=== PATIENT | male | born 1950 | race Caucasian/White ===

== ENCOUNTER 2019-10-28 13:42 | IRF | payer MEDICARE, SELFPAY ==
[2019-10-28 14:00] VITALS: BP 118/55; PULSE 66; RESP 18; TEMP 36.5; O2SAT 100; BMI 27.1
--- NOTE | 2019-10-28 16:38 | PC.NURSE ---
This patient, Edgar Bonds, was admitted to [facility] Room 219-02. Patient/family oriented to hospital policies and general routines including ID bracelet, bed and alarms, visiting hours, pain management, procedures, bathroom and other care routines, personal items, smoking policy, room service/diet, and visiting hours. Valuables list has been completed. Information on how to activate the Rapid Response Team has been discussed. Patient/Family are encouraged to report perceived risks to care and to ask questions if they do not understand what they are told or what they should do.
[2019-10-28 17:05] VITALS: BMI 27.1
[2019-10-28 17:30] LABS: Glucose Point of Care 299 (65-105)
[2019-10-28 17:35] VITALS: PULSE 68
[2019-10-28] MEDS: AMIODARONE HCL 200 MG TABLET PO (17:35)
[2019-10-28] MEDS: INSULIN ASPART (*BKC) 100 UNITS/ML 8 UNITS SUB-Q (17:36)
[2019-10-28] MEDS: APIXABAN 5 MG TABLET PO (17:36)
[2019-10-28 20:11] LABS: Glucose Point of Care 418 (65-105)
[2019-10-28 20:59] VITALS: PULSE 68
[2019-10-28] MEDS: carvediloL 25 MG TABLET PO (20:59)
[2019-10-28] MEDS: INSULIN GLARGINE (*BKC) 100 UNITS/ML 30 UNITS SUB-Q (20:59)
[2019-10-28 22:00] VITALS: BP 164/58; PULSE 71; RESP 18; TEMP 36.8; O2SAT 100
[2019-10-29] VITALS (8 sets, daily range): BP systolic 123–141; BP diastolic 55–65; PULSE 63–90; RESP 16–19; TEMP 36.2–36.7; O2SAT 99–100
[2019-10-29 04:56] LABS: Basophils Absolute Auto 0.1 K/mm3 (0.0-0.1); Basophils Percent Auto 0.9 % (0.2-1.2); Eosinophils Absolute Auto 0.3 K/mm3 (0-0.3); Eosinophils Percent Auto 3.1 % (0-4.4); Hematocrit 26.9 % (42.0-52.0); Hemoglobin 8.8 g/dL (14.0-18.0); Immature Granulocyte Absolute 0.23 K/mm3 (0.00-0.031); Immature Granulocyte Percent A 2.3 % (0-0.5); Lymphocytes Absolute Auto 2.31 K/mm3 (0.9-3.2); Lymphocytes Percent Auto 23.3 % (18.3-44.2); Mean Corpuscular HGB Conc 32.7 g/dl (32-36); Mean Corpuscular Hemoglobin 30.8 pg (26-34); Mean Corpuscular Volume 94.1 fl (80-100); Mean Platelet Volume 11.4 fl (7.4-10.4); Monocytes Absolute Auto 0.9 K/mm3 (0.1-0.6); Monocytes Percent Auto 9.3 % (2.6-8.5); Neutrophils Absolute Auto 6.1 K/mm3 (1.3-6.7); Neutrophils Percent Auto 61.1 % (45.5-73.1); Platelet Count Result 456 k/mm3 (150-375); Red Blood Count 2.86 M/mm3 (4.6-6.20); Red Cell Distribution Width 14.6 % (11.5-14.5); White Blood Count 9.9 K/mm3 (4.5-10.0)
[2019-10-29 05:04] LABS: Hemoglobin A1C 6.8 % (<5.7)
[2019-10-29 05:11] LABS: Blood Urea Nitrogen 51 mg/dL (9-20); Calcium 9.6 mg/dL (8.4-10.2); Carbon Dioxide 29 mmol/L (22-30); Chloride 99 mmol/L (98-107); Cholesterol 198 mg/dL (0-200); Estimated CRCL calculation 28 ml/min; Estimated Glomerular Filt Rate 27; Glucose 244 mg/dL (75-110); HDL Direct 24 mg/dL; Potassium 4.9 mmol/L (3.4-5.0); Sodium 135 mmol/L (137-145); Triglycerides 264 mg/dL (<150)
[2019-10-29 05:23] LABS: LDL Cholesterol Direct 114 mg/dL
[2019-10-29 06:59] LABS: Glucose Point of Care 234 (65-105)
[2019-10-29] MEDS: AMIODARONE HCL 200 MG TABLET PO ×2 (08:47→17:48)
[2019-10-29] MEDS: DIGOXIN 250 MCG TABLET PO (08:48)
[2019-10-29] MEDS: APIXABAN 5 MG TABLET PO ×2 (08:48→17:48)
[2019-10-29] MEDS: carvediloL 25 MG TABLET PO ×2 (08:48→20:23)
[2019-10-29] MEDS: POTASSIUM CHLORIDE 10 MEQ TABLET.ER PO (08:49)
[2019-10-29] MEDS: MAGNESIUM OXIDE 400 MG TABLET PO (08:49)
[2019-10-29] MEDS: FUROSEMIDE 40 MG TABLET PO (08:49)
[2019-10-29] MEDS: INSULIN ASPART (*BKC) 100 UNITS/ML 8 UNITS SUB-Q ×3 (08:53→17:48)
--- NOTE | 2019-10-29 10:00 | WPDREHABHP ---
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 The patient is a 69-year-old right-handed white male with past medical history of hypertension and diabetes mellitus with peripheral neuropathy who presented to [facility] on October 11, 2019 with acute mental status changes. Patient's reported the patient was shaky not following commands and had a left-sided gaze deviation. She called EMS. The checked the patient's blood glucose on reported it at 162 but EMS found it to be 33. He was given 1 amp you will of D50 with rapid resolution of symptoms. He did have an episode of emesis in the emergency department. CT of the head showed an old left thalamic stroke and small abnormality within the right thalamus which could represent an age indeterminate stroke. Initial chest x-ray was negative. CT of the chest abdomen pelvis demonstrated clear lung bases but showed thickened interstitial tissues around bilateral kidneys for which the patient was given 2 gram of IV Rocephin. He was also given 1 gram of calcium gluconate 10 units of regular insulin and 100 milligram IV Lasix for hyperkalemia. The patient developed a of worsening respiratory status and desaturated down to the 70s. He became agitated and would not keep oxygen in place. He had a significantly elevated blood pressure with concern for flash pulmonary edema. Repeat chest x-ray demonstrated short interval development of extensive bilateral interstitial reticular opacity suggestive of edema or infiltrates. Fluids were stopped and the patient was intubated sedated and started on mechanical ventilation he was admitted to the ICU. Nephrology was consulted and saw patient on October 12, 2019 for acute renal failure with hyperkalemia worsened by succinylcholine. A groin catheter was placed and was used for temporary dialysis to correct metabolic acidosis and hyperkalemia. All cultures obtained per negative. COVID-19 testing was negative. He was treated with vancomycin and cefepime and azithromycin and was diuresed for congestion a he was extubated on October 16, 2019 and was placed on CPAP, he was transitioned to BiPAP and eventually weaned to a high-flow nasal cannula on October 20, 2019 his hemodialysis catheter was removed on October 20, 2019. Nephrology feels his new treating level at a baseline is around 2 currently 1.94 he was weaned to 8 Oxymizer on October 21, 2019 but on October 22, 2019 became hypoxic at 88% so the oximeter was titrated up to 10 liters. He weaned down to 2 liters per nasal cannula on October 23, 2019 and is concerned currently on moved air. Cardiology was consulted and saw the patient on October 22, 2019 for new atrial fibrillation with rapid ventricular response. His echo showed no valvular disease and the was no documented history of atrial fibrillation. He remained stable and required boluses of amiodarone x5 as well as p.o. dosing in the prior days. Cardiology increase his p.o. dosing to 400 milligram t.i.d. for 48 hours. In addition and they added renal does digoxin and continued Coreg patient had an elevated troponin which cardiology attributed to demand ischemia from respiratory failure given his echo showed stable LV SF and no wall motion abnormality. He was transitioned from the heparin drops to p.o. anticoagulation. The patient failed the swallow study in October 20, 2019. On October 21, 2019 his diet was advanced to dysphagia 3 and October 23, 2019 he was advanced to regular consistency diet with thin liquids. Physical examination continues to reveal deconditioning impaired balance decreased motor control and decreased safety aware
[2019-10-29 12:38] LABS: Glucose Point of Care 314 (65-105)
[2019-10-29 17:27] LABS: Glucose Point of Care 353 (65-105)
[2019-10-29 20:09] LABS: Glucose Point of Care 418 (65-105)
[2019-10-29] MEDS: INSULIN GLARGINE (*BKC) 100 UNITS/ML 30 UNITS SUB-Q (20:24)
[2019-10-30] VITALS (9 sets, daily range): BP systolic 123–152; BP diastolic 59–66; PULSE 68–78; RESP 16–18; TEMP 36.8–36.9; O2SAT 97–100
[2019-10-30 06:55] LABS: Glucose Point of Care 237 (65-105)
--- NOTE | 2019-10-30 09:33 | RPD ---
INDIVIDUALIZED PLAN OF CARE FOR Edgar Bonds Brief Synthesis of Pre-Admission Screen, Post-Admission Evaluation and Therapy Evaluations: The patient presents to rehab with critical illness myopathy. Comorbidities include acute hypoxic respiratory failure requiring ventilation, acute renal failure requiring temporary hemodialysis, right thalamic indeterminate age stroke, hyperkalemia, hypoglycemia, hyperglycemia, diabetes mellitus type 2, hypertension, hypertensive emergency, elevated troponin, hyperlactatemia, metabolic acidosis, dysphagia, atrial fibrillation with RVR, sepsis, acute diastolic congestive heart failure. The patient requires physician services for neurology services, medical oversight, and coordination of care. Emotional needs will be monitored as depression is a common sequelae of stroke. The patient needs physician monitoring and treatment of respiratory insufficiency, hypertension, diabetes mellitus, new atrial fibrillation with RVR, renal failure, monitoring for adverse reactions to new medications, and monitoring of infection. The patient requires nursing services for frequent neuro checks, anticoagulation therapy, medication management and education, pressure relief and skin care management, monitoring of labs, bowel and bladder training, diabetes management and education, and fall/safety precautions. Deficits include:ADLs, Balance, Cognition, Endurance, Family Training/Education, Mobility, Pain Management, ROM, Safety, Strength, Swallowing, Transfers Reproductive Endocrinologist/Case Management for: Discharge Planning and Patient/Family Counseling Physical Therapy: 5 days per week for 90 minutes. Treatments may include: Therapeutic Exercise, Gait Training, Neuromuscular Re-education, Transfer Training, Community Reintegration, Bed Mobility, Patient/Family Education, Wheelchair Mobility Group Therapy/Concurrent Therapy Rationales: -Improve attention span during functional activities in a distracted environment. -Enhance problem solving and/or adequate judgment skills during functional activities in a distracted environment. -Promote increased safety awareness in a distracted environment to reduce fall risk with functional tasks, transfers, and ambulation to allow a more safe, self-sufficient return to the home environment. -Improve dynamic balance skills to promote safety and independence with functional activities in a distracted environment for maximum gain. Occupational Therapy: 5 days per week for 90 minutes. Treatments may include: Therapeutic Exercise, Therapeutic Activity, Cognitive Training, Self-Care Transfer Training, Community Reintegration, Home Management, Patient/Family Education, Wheelchair Mobility Training, Energy Conservation Training Group Therapy/Concurrent Therapy Rationales: -Allow therapist to observe and teach generalization and carry-over of skills learned in individual therapy. -Enhance problem solving and sequencing skills during therapeutic activities in a distracted environment. -Promote increased safety awareness in a realistic setting to reduce fall risk with functional tasks due to visual and verbal distractions. -Increase functional level with ADLs, ADL transfers and use of adaptive equipment through therapeutic activities with others while promoting safety to allow a more safe, self-sufficient return home. Medical Prognosis: Good Anticipated Length of Stay: 12 days Rehab Goals: Eating Goal: 06-Independent Oral Hygiene Goal: 06-Independent Toileting Hygiene Goal: 06-Independent Shower/Bathe Self Goal: 06-Independent Upper Body Dressing Goal: 06-Independent Lower Body Dressing Goal: 06-Independent Putting On/Taking Off Footwear Goal: 06-Independent Rolling Left and Right Goal: 06-Independent Sit to Lying Goal: 06-Independent Lying to Sitting on Side of Bed Goal: 06-Independent Sit to Stand Goal: 06-Independent Chair/Ssj-eh-[id number] Transfer Goal: 06-Independent Toilet Transfer Goal: 06-Independent Car Transfer Goal
[2019-10-30] MEDS: AMIODARONE HCL 200 MG TABLET PO ×2 (10:06→17:52)
[2019-10-30] MEDS: DIGOXIN 250 MCG TABLET PO (10:07)
[2019-10-30] MEDS: APIXABAN 5 MG TABLET PO ×2 (10:07→17:52)
[2019-10-30] MEDS: carvediloL 25 MG TABLET PO ×2 (10:07→20:31)
[2019-10-30] MEDS: FUROSEMIDE 40 MG TABLET PO (10:08)
[2019-10-30] MEDS: INSULIN ASPART (*BKC) 100 UNITS/ML 8 UNITS SUB-Q ×3 (10:08→17:51)
[2019-10-30] MEDS: MAGNESIUM OXIDE 400 MG TABLET PO (10:08)
[2019-10-30] MEDS: POTASSIUM CHLORIDE 10 MEQ TABLET.ER PO (10:08)
[2019-10-30 12:25] LABS: Glucose Point of Care 331 (65-105)
[2019-10-30 17:36] LABS: Glucose Point of Care 304 (65-105)
[2019-10-30] MEDS: INSULIN GLARGINE (*BKC) 100 UNITS/ML 30 UNITS SUB-Q (20:32)
[2019-10-30 21:16] LABS: Glucose Point of Care 411 (65-105)
[2019-10-31] VITALS (9 sets, daily range): BP systolic 123–150; BP diastolic 52–64; PULSE 61–72; RESP 16–18; TEMP 36–37.1; O2SAT 98–100; BMI 27.1
[2019-10-31 06:55] LABS: Glucose Point of Care 255 (65-105)
[2019-10-31] MEDS: APIXABAN 5 MG TABLET PO ×2 (09:09→17:44)
[2019-10-31] MEDS: AMIODARONE HCL 200 MG TABLET PO ×2 (09:09→17:44)
[2019-10-31] MEDS: DIGOXIN 250 MCG TABLET PO (09:10)
[2019-10-31] MEDS: FUROSEMIDE 40 MG TABLET PO (09:10)
[2019-10-31] MEDS: MAGNESIUM OXIDE 400 MG TABLET PO (09:10)
[2019-10-31] MEDS: carvediloL 25 MG TABLET PO ×2 (09:10→21:45)
[2019-10-31] MEDS: POTASSIUM CHLORIDE 10 MEQ TABLET.ER PO (09:10)
[2019-10-31] MEDS: polyethylene glycoL 3350 17 GM POWD.PACK PO (09:10)
[2019-10-31] MEDS: INSULIN ASPART (*BKC) 100 UNITS/ML 10 UNITS SUB-Q ×3 (09:11→17:46)
--- NOTE | 2019-10-31 12:11 | PCNFU ---
Nutrition Follow-Up Complete: Inadequate oral intake r/t reduced appetite & stress as evidence by mild wt loss over last few weeks (2-12lbs) Goal: PO intake of meals at 75% or greater to maintain wt We will continue current goal. Pt current nutrition is [facility]. Nutrition recommendation: Agree Last recorded weight is 88.4 kg. Bowel Motility:+BM reported 10/27 Labs Reviewed:No labs to report. Meds Noted:Novolog, Miralax, Lantus, Lasix Additional Notes: Spoke with patient over telephone due to COVID 19 precautions. Patient states appetite has been fair. Since going into the hospital September weight has been down about 20 ibs. He states insulin is new, Bat Boy/Girl has been consulted. orders for Glucerna Shake once per day providing an additional 220 kcals and 9 gms protein. PO intake, wt, glucose labs every five days
[2019-10-31 12:14] LABS: Glucose Point of Care 306 (65-105)
--- NOTE | 2019-10-31 12:46 | WPDNEURORHBP ---
Subjective Date/time seen: 10/31/19 12:46 Interval history: this 69-year-old diabetic gentleman is here because of critical illness myopathy and critical illness neuropathy he is doing fairly well and we are waiting for the diabetic nurse to educate him and try to adjust his medications overall he continues to improve denies any headache nausea vomiting chest pain shortness of breath fever chills or sore throat Review of Systems Review of Systems: All systems reviewed & are unremarkable except as noted in HPI and below Functional Status Ambulation Ability Ability to Ambulate 10 Feet: Moderate Assistance X 1 Ability to Ambulate 50 Feet With 2 Turns: Moderate Assistance X 1 Ambulation Assistive Devices: Walker, Wheeled Exam Const: General: comfortable and no acute distress HENMT: General nose exam: Normal nares present Mouth: Yes moist mucous membranes Eyes: General: appearance normal, both eyes and all related structures Neck: Neck: supple and no JVD Resp: Effort & Inspection: normal respiratory effort Auscultation: clear to auscultation bilaterally Cardio: Rate: regular rate Rhythm: regular rhythm GI: GI Palp: Yes Soft to palpation Auscultation: normal bowel sounds Skin: General skin exam: normal color and no rashes or lesions noted Neuro: Other: patient is awake and alert well oriented time place and person has normal speech and language function normal cranial examination does have evidence of myopathy with the proximal more than distal weakness affecting the lower extremities more so than the upper extremities along with neuropathy and also depressed reflexes in the sensory deficit Extrem: General: normal to inspection Psych: Mental Status: mental status grossly normal Objective Data Vital Signs Vital Signs: Vital Signs - 24 hr 10/30/19 14:00 10/30/19 14:05 10/30/19 17:52 Temperature 36.8 C Pulse Rate 68 68 72 Respiratory Rate 16 Blood Pressure 131/66 134/63 Pulse Oximetry 100 10/30/19 20:31 10/30/19 22:00 10/31/19 06:00 Temperature 36.8 C 37.1 C Pulse Rate 72 78 67 Respiratory Rate 18 16 Blood Pressure 148/59 H 139/64 Pulse Oximetry 97 99 10/31/19 08:00 10/31/19 09:09 10/31/19 09:10 Temperature Pulse Rate 67 67 67 Respiratory Rate 16 Blood Pressure Pulse Oximetry 99 10/31/19 09:33 Temperature Pulse Rate 67 Respiratory Rate Blood Pressure 142/52 H Pulse Oximetry 100 Intake/Output Intake/Output: Intake & Output 10/28/19 10/29/19 10/30/19 10/31/19 23:59 23:59 23:59 23:59 Intake Total 240 840 780 240 Balance 240 840 780 240 Meds/Results Medications: Active Medications Generic Name Dose Route Start Last Admin Trade Name Montyq PRN Reason Stop Dose Admin Amiodarone HCl 200 mg 10/28/19 17:00 10/31/19 09:09 Pacerone PO 200 mg BID AYESHA Administration Apixaban 5 mg 10/28/19 17:00 10/31/19 09:09 Eliquis PO 5 mg BID AYESHA Administration Carvedilol 25 mg 10/28/19 21:00 10/31/19 09:10 Coreg PO 25 mg Q12HR AYESHA Administration Digoxin 250 mcg 10/29/19 09:00 10/31/19 09:10 Lanoxin Tab PO 250 mcg DAILY AYESHA Administration Furosemide 40 mg 10/29/19 09:00 10/31/19 09:10 Lasix Tablet PO 40 mg DAILY AYESHA Administration Insulin Aspart 10 units 10/30/19 21:34 10/31/19 09:11 Novolog SUB-Q 10 units ACINSULIN AYESHA Administration Insulin Glargine 30 units 10/28/19 21:00 10/30/19 20:32 Lantus SUB-Q 30 units HS AYESHA Administration Magnesium Oxide 400 mg 10/29/19 09:00 10/31/19 09:10 Mag-Ox PO 400 mg DAILY AYESHA Administration Polyethylene Glycol 17 gm 10/31/19 09:00 10/31/19 09:10 Miralax PO 17 gm QAM AYESHA Administration Potassium Chloride 10 meq 10/29/19 09:00 10/31/19 09:10 Kcl Tablet PO 10 meq DAILY AYESHA Administration Ropinirole HCl 0.25 mg 10/28/19 21:00 10/30/19 20:31 Requip PO 0.25 mg HS AYESHA Administration Labs Labs: Laborat
[2019-10-31 17:16] LABS: Glucose Point of Care 268 (65-105)
[2019-10-31] MEDS: INSULIN ASPART (*BKC) 100 UNITS/ML SUB-Q (17:47)
[2019-10-31] MEDS: INSULIN GLARGINE (*BKC) 100 UNITS/ML 30 UNITS SUB-Q (21:46)
[2019-10-31 22:14] LABS: Glucose Point of Care 301 (65-105)
[2019-11-01] VITALS (10 sets, daily range): BP systolic 130–140; BP diastolic 59–68; PULSE 64–76; RESP 16–17; TEMP 36.9–37.3; O2SAT 99–100
[2019-11-01 04:52] LABS: Basophils Absolute Auto 0.1 K/mm3 (0.0-0.1); Basophils Percent Auto 1.1 % (0.2-1.2); Eosinophils Absolute Auto 0.3 K/mm3 (0-0.3); Eosinophils Percent Auto 3.7 % (0-4.4); Hemoglobin 8.8 g/dL (14.0-18.0); Immature Granulocyte Absolute 0.09 K/mm3 (0.00-0.031); Immature Granulocyte Percent A 1.1 % (0-0.5); Lymphocytes Absolute Auto 2.18 K/mm3 (0.9-3.2); Lymphocytes Percent Auto 27.8 % (18.3-44.2); Mean Corpuscular HGB Conc 32.6 g/dl (32-36); Mean Corpuscular Hemoglobin 30.3 pg (26-34); Mean Corpuscular Volume 93.1 fl (80-100); Mean Platelet Volume 11.3 fl (7.4-10.4); Monocytes Absolute Auto 0.9 K/mm3 (0.1-0.6); Monocytes Percent Auto 10.9 % (2.6-8.5); Neutrophils Absolute Auto 4.3 K/mm3 (1.3-6.7); Neutrophils Percent Auto 55.4 % (45.5-73.1); Platelet Count Result 412 k/mm3 (150-375); Red Cell Distribution Width 14.1 % (11.5-14.5); White Blood Count 7.8 K/mm3 (4.5-10.0)
[2019-11-01 05:25] LABS: Blood Urea Nitrogen 36 mg/dL (9-20); Calcium 9.3 mg/dL (8.4-10.2); Carbon Dioxide 26 mmol/L (22-30); Chloride 98 mmol/L (98-107); Estimated CRCL calculation 34 ml/min; Estimated Glomerular Filt Rate 33; Glucose 236 mg/dL (75-110); Potassium 4.3 mmol/L (3.4-5.0); Sodium 133 mmol/L (137-145)
[2019-11-01 06:58] LABS: Glucose Point of Care 236 (65-105)
[2019-11-01] MEDS: INSULIN ASPART (*BKC) 100 UNITS/ML SUB-Q ×3 (08:51→17:29)
[2019-11-01] MEDS: INSULIN ASPART (*BKC) 100 UNITS/ML 10 UNITS SUB-Q ×3 (08:52→17:29)
[2019-11-01] MEDS: DIGOXIN 250 MCG TABLET PO (08:56)
[2019-11-01] MEDS: carvediloL 25 MG TABLET PO ×2 (08:56→21:06)
[2019-11-01] MEDS: FUROSEMIDE 40 MG TABLET PO (08:56)
[2019-11-01] MEDS: MAGNESIUM OXIDE 400 MG TABLET PO (08:56)
[2019-11-01] MEDS: APIXABAN 5 MG TABLET PO ×2 (08:56→17:31)
[2019-11-01] MEDS: AMIODARONE HCL 200 MG TABLET PO ×2 (08:57→17:30)
[2019-11-01] MEDS: POTASSIUM CHLORIDE 10 MEQ TABLET.ER PO (08:57)
[2019-11-01] MEDS: polyethylene glycoL 3350 17 GM POWD.PACK PO (08:57)
[2019-11-01 12:04] LABS: Glucose Point of Care 281 (65-105)
--- NOTE | 2019-11-01 16:12 | WPDNEURORHBP ---
Subjective Date/time seen: 11/01/19 16:12 Interval history: this 69-year-old diabetic male with a complicated medical history as has been previously documented on many occasions along with my HNP is here because critical illness myopathy/ critical illness neuropathy. His sugars have been relatively better control at this point the diabetic specialist has seen him and has recommended some changes which I was able to do so his strength is improving he denies any headache nausea vomiting chest pain shortness of breath fever chills or sore throat Review of Systems Review of Systems: All systems reviewed & are unremarkable except as noted in HPI and below Functional Status Ambulation Ability Ability to Ambulate 10 Feet: Minimum Assistance X 1 Ability to Ambulate 50 Feet With 2 Turns: Minimum Assistance X 1 Ambulation Assistive Devices: Walker, Wheeled Exam Const: General: comfortable and no acute distress HENMT: General nose exam: Normal nares present Mouth: Yes moist mucous membranes Eyes: General: appearance normal, both eyes and all related structures Neck: Neck: supple and no JVD Resp: Effort & Inspection: normal respiratory effort Auscultation: clear to auscultation bilaterally Cardio: Rate: regular rate Rhythm: regular rhythm GI: GI Palp: Yes Soft to palpation Auscultation: normal bowel sounds Skin: General skin exam: normal color and no rashes or lesions noted Neuro: Other: patient remains awake alert with normal mental status normal cranial examination however significantly decreased strength in the lower extremities more so than the upper extremities with proximal more than the distal weakness however this is improving and is doing much better Extrem: General: normal to inspection Psych: Mental Status: mental status grossly normal Objective Data Vital Signs Vital Signs: Vital Signs - 24 hr 10/31/19 17:44 10/31/19 20:44 10/31/19 21:45 Temperature 37.1 C Pulse Rate 69 61 72 Respiratory Rate 18 Blood Pressure 150/62 H Pulse Oximetry 98 11/01/19 06:00 11/01/19 08:56 11/01/19 08:57 Temperature 37.0 C Pulse Rate 64 64 64 Respiratory Rate 16 Blood Pressure 140/59 L Pulse Oximetry 100 11/01/19 14:00 Temperature 37.3 C Pulse Rate 66 Respiratory Rate 17 Blood Pressure 134/59 L Pulse Oximetry 100 Intake/Output Intake/Output: Intake & Output 10/29/19 10/30/19 10/31/19 11/01/19 23:59 23:59 23:59 23:59 Intake Total 840 780 720 660 Balance 840 780 720 660 Meds/Results Medications: Active Medications Generic Name Dose Route Start Last Admin Trade Name Freq PRN Reason Stop Dose Admin Amiodarone HCl 200 mg 10/28/19 17:00 11/01/19 08:57 Pacerone PO 200 mg BID AYESHA Administration Apixaban 5 mg 10/28/19 17:00 11/01/19 08:56 Eliquis PO 5 mg BID AYESHA Administration Carvedilol 25 mg 10/28/19 21:00 11/01/19 08:56 Coreg PO 25 mg Q12HR AYESHA Administration Dextrose 12.5 gm 10/31/19 14:42 Dextrose 50% Syringe IV PUSH PRN PRN Hypoglycemia Protocol Digoxin 250 mcg 10/29/19 09:00 11/01/19 08:56 Lanoxin Tab PO 250 mcg DAILY AYESHA Administration Furosemide 40 mg 10/29/19 09:00 11/01/19 08:56 Lasix Tablet PO 40 mg DAILY AYESHA Administration Glucagon 1 mg 10/31/19 14:42 Glucagon For Inj IM PRN PRN Hypoglycemia Protocol Glucose 15 gm 10/31/19 14:42 Glutose 15 PO PRN PRN Hypoglycemia Protocol Dextrose 1,000 mls @ 100 mls/hr 10/31/19 14:42 Dextrose 5% 1,000 Ml IVPB PRN PRN Hypoglycemia Protocol Insulin Aspart 10 units 10/30/19 21:34 11/01/19 12:27 Novolog SUB-Q 10 units ACINSULIN AYESHA Administration Insulin Aspart 3 - 6 units 10/31/19 17:00 11/01/19 12:27 Novolog SUB-Q 4 units TIDWM AYESHA Administration Protocol Insulin Glargine 30 units 10/28/19 21:00 10/31/19 21:46 Lantus SUB-Q 30 units HS [facility] Admi
[2019-11-01 17:10] LABS: Glucose Point of Care 224 (65-105)
[2019-11-01] MEDS: INSULIN GLARGINE (*BKC) 100 UNITS/ML 30 UNITS SUB-Q (21:06)
[2019-11-01 21:25] LABS: Glucose Point of Care 294 (65-105)
[2019-11-02] VITALS (9 sets, daily range): BP systolic 105–141; BP diastolic 49–68; PULSE 66–78; RESP 16–20; TEMP 36.8–37.2; O2SAT 100
[2019-11-02 07:02] LABS: Glucose Point of Care 225 (65-105)
[2019-11-02] MEDS: INSULIN ASPART (*BKC) 100 UNITS/ML 10 UNITS SUB-Q ×3 (07:39→18:33)
[2019-11-02] MEDS: INSULIN ASPART (*BKC) 100 UNITS/ML SUB-Q ×3 (07:39→18:33)
[2019-11-02] MEDS: MAGNESIUM OXIDE 400 MG TABLET PO (08:50)
[2019-11-02] MEDS: DIGOXIN 250 MCG TABLET PO (08:50)
[2019-11-02] MEDS: APIXABAN 5 MG TABLET PO ×2 (08:50→18:34)
[2019-11-02] MEDS: POTASSIUM CHLORIDE 10 MEQ TABLET.ER PO (08:50)
[2019-11-02] MEDS: FUROSEMIDE 40 MG TABLET PO (08:50)
[2019-11-02] MEDS: polyethylene glycoL 3350 17 GM POWD.PACK PO (08:50)
[2019-11-02] MEDS: carvediloL 25 MG TABLET PO ×2 (08:51→21:02)
[2019-11-02] MEDS: AMIODARONE HCL 200 MG TABLET PO ×2 (08:51→18:35)
[2019-11-02 12:19] LABS: Glucose Point of Care 224 (65-105)
--- NOTE | 2019-11-02 16:34 | WPDNEURORHBP ---
Subjective Date/time seen: 11/02/19 16:34 Interval history: this 69-year-old gentleman is here because of the critical illness myopathy /critical illness peripheral neuropathy with prolonged course of the hospitalization prior to coming to us his diabetic control at best is fair and have increased his Januvia today his renal function is better which is good news he denies any headache nausea vomiting chest pain shortness of breath fever chills sore throat Review of Systems Review of Systems: All systems reviewed & are unremarkable except as noted in HPI and below Functional Status Ambulation Ability Ability to Ambulate 10 Feet: Minimum Assistance X 1 Ability to Ambulate 50 Feet With 2 Turns: Minimum Assistance X 1 Ability to Ambulate 150 Feet: Minimum Assistance X 1 Ambulation Assistive Devices: Walker, Wheeled Exam Const: General: comfortable and no acute distress HENMT: General nose exam: Normal nares present Mouth: Yes moist mucous membranes Eyes: General: appearance normal, both eyes and all related structures Neck: Neck: supple and no JVD Resp: Effort & Inspection: normal respiratory effort Auscultation: clear to auscultation bilaterally Cardio: Rate: regular rate Rhythm: regular rhythm GI: GI Palp: Yes Soft to palpation Auscultation: normal bowel sounds Skin: General skin exam: normal color and no rashes or lesions noted Neuro: Other: patient's mental status examination is normal his strength is improving and is doing better in the rehab Extrem: General: normal to inspection Psych: Mental Status: mental status grossly normal Objective Data Vital Signs Vital Signs: Vital Signs - 24 hr 11/01/19 17:30 11/01/19 20:12 11/01/19 21:06 Temperature 36.9 C Pulse Rate 68 70 76 Respiratory Rate 16 Blood Pressure 131/61 Pulse Oximetry 99 11/02/19 06:15 11/02/19 08:50 11/02/19 08:51 Temperature 37.0 C Pulse Rate 67 66 66 Respiratory Rate 16 Blood Pressure 126/68 Pulse Oximetry 100 11/02/19 09:00 11/02/19 10:00 11/02/19 14:00 Temperature 37.2 C Pulse Rate 71 66 78 Respiratory Rate 16 20 Blood Pressure 141/59 H 105/49 L Pulse Oximetry 100 Intake/Output Intake/Output: Intake & Output 10/30/19 10/31/19 11/01/19 11/02/19 23:59 23:59 23:59 23:59 Intake Total 780 720 900 480 Balance 780 720 900 480 Meds/Results Medications: Active Medications Generic Name Dose Route Start Last Admin Trade Name Freq PRN Reason Stop Dose Admin Amiodarone HCl 200 mg 10/28/19 17:00 11/02/19 08:51 Pacerone PO 200 mg BID AYESHA Administration Apixaban 5 mg 10/28/19 17:00 11/02/19 08:50 Eliquis PO 5 mg BID AYESHA Administration Carvedilol 25 mg 10/28/19 21:00 11/02/19 08:51 Coreg PO 25 mg Q12HR AYESHA Administration Dextrose 12.5 gm 10/31/19 14:42 Dextrose 50% Syringe IV PUSH PRN PRN Hypoglycemia Protocol Digoxin 250 mcg 10/29/19 09:00 11/02/19 08:50 Lanoxin Tab PO 250 mcg DAILY AYESHA Administration Furosemide 40 mg 10/29/19 09:00 11/02/19 08:50 Lasix Tablet PO 40 mg DAILY AYESHA Administration Glucagon 1 mg 10/31/19 14:42 Glucagon For Inj IM PRN PRN Hypoglycemia Protocol Glucose 15 gm 10/31/19 14:42 Glutose 15 PO PRN PRN Hypoglycemia Protocol Dextrose 1,000 mls @ 100 mls/hr 10/31/19 14:42 Dextrose 5% 1,000 Ml IVPB PRN PRN Hypoglycemia Protocol Insulin Aspart 10 units 10/30/19 21:34 11/02/19 12:26 Novolog SUB-Q 10 units ACINSULIN AYESHA Administration Insulin Aspart 3 - 6 units 10/31/19 17:00 11/02/19 12:26 Novolog SUB-Q 3 units TIDWM AYESHA Administration Protocol Insulin Glargine 30 units 10/28/19 21:00 11/01/19 21:06 Lantus SUB-Q 30 units HS AYESHA Administration Magnesium Oxide 400 mg 10/29/19 09:00 11/02/19 08:50 Mag-Ox PO 400 mg DAILY AYESHA Administration Polyethylene Glycol 17 gm 10/31/19 0
[2019-11-02 17:31] LABS: Glucose Point of Care 290 (65-105)
[2019-11-02 20:40] LABS: Glucose Point of Care 330 (65-105)
[2019-11-02] MEDS: INSULIN GLARGINE (*BKC) 100 UNITS/ML 30 UNITS SUB-Q (21:02)
[2019-11-03] VITALS (8 sets, daily range): BP systolic 137–150; BP diastolic 51–62; PULSE 66–72; RESP 16–20; TEMP 36.3–37; O2SAT 99–100
[2019-11-03 07:00] LABS: Glucose Point of Care 255 (65-105)
[2019-11-03] MEDS: FUROSEMIDE 40 MG TABLET PO (08:25)
[2019-11-03] MEDS: MAGNESIUM OXIDE 400 MG TABLET PO (08:25)
[2019-11-03] MEDS: POTASSIUM CHLORIDE 10 MEQ TABLET.ER PO (08:25)
[2019-11-03] MEDS: AMIODARONE HCL 200 MG TABLET PO ×2 (08:25→17:24)
[2019-11-03] MEDS: APIXABAN 5 MG TABLET PO ×2 (08:25→17:18)
[2019-11-03] MEDS: DIGOXIN 250 MCG TABLET PO (08:25)
[2019-11-03] MEDS: carvediloL 25 MG TABLET PO ×2 (08:26→20:17)
[2019-11-03] MEDS: polyethylene glycoL 3350 17 GM POWD.PACK PO (08:26)
[2019-11-03] MEDS: INSULIN ASPART (*BKC) 100 UNITS/ML 10 UNITS SUB-Q ×3 (08:27→17:24)
[2019-11-03] MEDS: INSULIN ASPART (*BKC) 100 UNITS/ML SUB-Q ×3 (08:27→17:25)
--- NOTE | 2019-11-03 10:09 | WPDNEURORHBP ---
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 Review of Systems Review of Systems: All systems reviewed & are unremarkable except as noted in HPI and below Functional Status Ambulation Ability Ability to Ambulate 10 Feet: Minimum Assistance X 1 Ability to Ambulate 50 Feet With 2 Turns: Minimum Assistance X 1 Ability to Ambulate 150 Feet: Minimum Assistance X 1 Ambulation Assistive Devices: Walker, Wheeled Exam Const: General: cooperative, comfortable, alert and awake Nutritional Appearance: average body habitus Orientation/consciousness: patient oriented x3 HENMT: Head: normal to inspection General nose exam: No nasal discharge present Eyes: General: appearance normal, both eyes and all related structures Neck: Neck: full ROM Resp: Effort & Inspection: normal respiratory effort and able to speak in complete sentences Auscultation: clear to auscultation bilaterally Cardio: Rate: regular rate Rhythm: regular rhythm GI: Auscultation: normal bowel sounds Skin: General skin exam: no rashes or lesions noted Neuro: General: patient oriented x3, moves all extremities and CN's II-XI intact bilaterally Cognition (Neuro): normal cognition Speech: normal speech Motor exam (neuro): Abnormal motor strength present (small muscle atrophy) and Abnormal muscle tone present Sensory Exam: Sensory deficit (Neuro) Psych: Appearance: grossly normal Speech and movement: Normal speech and movement present Affect: normal affect Attitude: cooperative Thought process: Normal thought process present Thought content: Yes Normal thought content present Insight: Good insight present (Psych) Objective Data Vital Signs Vital Signs: Vital Signs - 24 hr 11/02/19 14:00 11/02/19 18:35 11/02/19 21:02 Temperature 37.2 C Pulse Rate 78 76 76 Respiratory Rate 20 Blood Pressure 105/49 L Pulse Oximetry 100 11/02/19 22:00 11/03/19 06:00 11/03/19 08:25 Temperature 36.8 C 36.3 C L Pulse Rate 70 66 66 Respiratory Rate 16 16 Blood Pressure 135/61 145/62 H Pulse Oximetry 100 99 11/03/19 08:26 Temperature Pulse Rate 66 Respiratory Rate Blood Pressure Pulse Oximetry Intake/Output Intake/Output: Intake & Output 10/31/19 11/01/19 11/02/19 11/03/19 23:59 23:59 23:59 23:59 Intake Total 720 900 720 240 Balance 720 900 720 240 Meds/Results Medications: Active Medications Generic Name Dose Route Start Last Admin Trade Name Freq PRN Reason Stop Dose Admin Amiodarone HCl 200 mg 10/28/19 17:00 11/03/19 08:25 Pacerone PO 200 mg BID AYESHA Administration Apixaban 5 mg 10/28/19 17:00 11/03/19 08:25 Eliquis PO 5 mg BID AYESHA Administration Carvedilol 25 mg 10/28/19 21:00 11/03/19 08:26 Coreg PO 25 mg Q12HR AYESHA Administration Dextrose 12.5 gm 10/31/19 14:42 Dextrose 50% Syringe IV PUSH PRN PRN Hypoglycemia Protocol Digoxin 250 mcg 10/29/19 09:00 11/03/19 08:25 Lanoxin Tab PO 250 mcg DAILY AYESHA Administration Furosemide 40 mg 10/29/19 09:00 11/03/19 08:25 Lasix Tablet PO 40 mg DAILY AYESHA Administration Glucagon 1 mg 10/31/19 14:42 Glucagon For Inj IM PRN PRN Hypoglycemia Protocol Glucose 15 gm 10/31/19 14:42 Glutose 15 PO PRN PRN Hypoglycemia Protocol Dextrose 1,000 mls @ 100 mls/hr 10/31/19 14:42 Dextrose 5% 1,000 Ml IVPB PRN PRN Hypoglycemia Protocol Insulin Aspart 10 units 10/30/19 21:34 11/03/19 08:27 Novolog SUB-Q 10 units ACINSULIN AYESHA Administration Insulin Aspart 3 - 6 units 10/31/19 17:00 11/03/19 08:27 Novolog SUB-Q 4 units TIDWM AYESHA Administration Protocol Insulin Glargine 30 units 10/28/19 21:00 11/02/19 21:02 Lantus SUB-Q 30 units HS AYESHA Administration Magnesium Oxide 400 mg 10/29/19 09:00 11/03/19 08:25 Mag-Ox PO 400 mg DAILY AYESHA Administration Jefe
[2019-11-03 12:07] LABS: Glucose Point of Care 308 (65-105)
--- NOTE | 2019-11-03 15:24 | PCPTNOTE ---
Edgar Bonds was evaluated for a wheeled walker on 11/03/2019 by this physical therapist. The wheeled walker will resolve patient's mobility limitations and will be used for ADL's within the home. The patient can safely use the wheeled walker. ?The wheeled walker will resolve the patient?s mobility deficits, including transfers, ambulation and ADL's. Melissa Chaidez PT
--- NOTE | 2019-11-03 15:54 | PCCDE ---
diabetes education f/up: see insurance inspector assessment 10/31/19 noted 10/31 mid level clinician=2.0 improved but still elevated. Pt was started 11/01 on 50 mg Januvia and increased 11/02 to 100mg Januvia. Pt continues on 30 units Lantus, 10 units Novolog AC plus moderate correction scale added on 10/30; since then glucose remains 225-330mg/dl (was 237-418mg/dl). Met with pt for insulin teaching but pt concerned if he will have to stay on insulin; sts I was well controlled on orals prior to admission . Agreed to hold on insulin teaching as discharge date is undetermined yet and possibly could consider simplied regimen of long acting insulin with renal doses of Glipizide and Januvia/Onglyza but uncertain if this will work considering continued hyperglycemia on insulin. Spoke with RN who sts they are having team meeting tomorrow. May wish to consider hospitalist consult for DM med management. Called Dr Hubbard about decreasing Januvia dose. Will f/up 11/04
[2019-11-03 17:09] LABS: Glucose Point of Care 250 (65-105)
[2019-11-03] MEDS: INSULIN GLARGINE (*BKC) 100 UNITS/ML 30 UNITS SUB-Q (21:04)
[2019-11-03 21:23] LABS: Glucose Point of Care 276 (65-105)
[2019-11-04] VITALS (7 sets, daily range): BP systolic 114–135; BP diastolic 45–62; PULSE 64–78; RESP 18–20; TEMP 36.9–37.1; O2SAT 98–99
[2019-11-04 06:55] LABS: Glucose Point of Care 245 (65-105)
[2019-11-04] MEDS: INSULIN ASPART (*BKC) 100 UNITS/ML SUB-Q ×2 (10:23→12:53)
[2019-11-04] MEDS: INSULIN ASPART (*BKC) 100 UNITS/ML 10 UNITS SUB-Q ×3 (10:23→18:28)
[2019-11-04] MEDS: APIXABAN 5 MG TABLET PO ×2 (10:25→18:28)
[2019-11-04] MEDS: carvediloL 25 MG TABLET PO ×2 (10:25→20:52)
[2019-11-04] MEDS: AMIODARONE HCL 200 MG TABLET PO ×2 (10:25→18:28)
[2019-11-04] MEDS: FUROSEMIDE 40 MG TABLET PO (10:26)
[2019-11-04] MEDS: polyethylene glycoL 3350 17 GM POWD.PACK PO (10:26)
[2019-11-04] MEDS: MAGNESIUM OXIDE 400 MG TABLET PO (10:26)
[2019-11-04] MEDS: POTASSIUM CHLORIDE 10 MEQ TABLET.ER PO (10:26)
[2019-11-04] MEDS: DIGOXIN 250 MCG TABLET PO (10:26)
[2019-11-04 12:27] LABS: Glucose Point of Care 295 (65-105)
--- NOTE | 2019-11-04 12:35 | WPDNEURORHBP ---
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 is brittle diabetic and sugars running close to 300s and I would need help from the hospitalist to manage it although he is getting Lantus which have plan to increase to a higher dose but I think it will be helpful from the internal medicine point of view which will be the appropriate) for reason underlying diabetes apart from decreased endurance and weakness related to the myopathy neuropathy complex he otherwise remains alert does not have any headache nausea vomiting chest pain shortness of breath fever chills or sore throat Review of Systems Review of Systems: All systems reviewed & are unremarkable except as noted in HPI and below Functional Status Ambulation Ability Ability to Ambulate 10 Feet: Standby Assistance Ability to Ambulate 50 Feet With 2 Turns: Standby Assistance Ability to Ambulate 150 Feet: Standby Assistance Ambulation Assistive Devices: Walker, Wheeled Transfers Ability Ability to Transfer In/Out of Chair: Standby Assistance Exam Const: General: comfortable and no acute distress HENMT: General nose exam: Normal nares present Mouth: Yes moist mucous membranes Eyes: General: appearance normal, both eyes and all related structures Neck: Neck: supple and no JVD Resp: Effort & Inspection: normal respiratory effort Auscultation: clear to auscultation bilaterally Cardio: Rate: regular rate Rhythm: regular rhythm GI: GI Palp: Yes Soft to palpation Auscultation: normal bowel sounds Skin: General skin exam: normal color and no rashes or lesions noted Neuro: Other: the patient remains awake alert well oriented to place person with normal speech and language function normal cranial examination however generalized weakness of both upper lower extremities proximal more than distal with evidence of myopathy and neuropathy as documented before Extrem: General: normal to inspection Psych: Mental Status: mental status grossly normal Objective Data Vital Signs Vital Signs: Vital Signs - 24 hr 11/03/19 14:00 11/03/19 17:24 11/03/19 20:17 Temperature 36.8 C Pulse Rate 69 69 72 Respiratory Rate 18 Blood Pressure 137/51 L Pulse Oximetry 100 11/03/19 22:00 11/04/19 06:00 11/04/19 10:25 Temperature 37.0 C 37.1 C Pulse Rate 69 64 64 Respiratory Rate 20 20 Blood Pressure 150/53 H 135/62 Pulse Oximetry 100 98 11/04/19 10:26 Temperature Pulse Rate 64 Respiratory Rate Blood Pressure Pulse Oximetry Intake/Output Intake/Output: Intake & Output 11/01/19 11/02/19 11/03/19 11/04/19 23:59 23:59 23:59 23:59 Intake Total 900 720 720 240 Balance 900 720 720 240 Meds/Results Medications: Active Medications Generic Name Dose Route Start Last Admin Trade Name Freq PRN Reason Stop Dose Admin Amiodarone HCl 200 mg 10/28/19 17:00 11/04/19 10:25 Pacerone PO 200 mg BID AYESHA Administration Apixaban 5 mg 10/28/19 17:00 11/04/19 10:25 Eliquis PO 5 mg BID AYESHA Administration Carvedilol 25 mg 10/28/19 21:00 11/04/19 10:25 Coreg PO 25 mg Q12HR AYESHA Administration Dextrose 12.5 gm 10/31/19 14:42 Dextrose 50% Syringe IV PUSH PRN PRN Hypoglycemia Protocol Digoxin 250 mcg 10/29/19 09:00 11/04/19 10:26 Lanoxin Tab PO 250 mcg DAILY AYESHA Administration Furosemide 40 mg 10/29/19 09:00 11/04/19 10:26 Lasix Tablet PO 40 mg DAILY AYESHA Administration Glucagon 1 mg 10/31/19 14:42 Glucagon For Inj IM PRN PRN Hypoglycemia Protocol Glucose 15 gm 10/31/19 14:42 Glutose 15 PO PRN PRN Hypoglycemia Protocol Dextrose 1,000 mls @ 100 mls/hr 10/31/19 14:42 Dextrose 5% 1,000 Ml IVPB PRN PRN Hypoglycemia Protocol Insulin Aspart 10 units 10/30/19 21:34 11/04/19 10:23 Novolog SUB-Q 10 units ACIN
[2019-11-04 17:19] LABS: Glucose Point of Care 173 (65-105)
[2019-11-04] MEDS: INSULIN GLARGINE (*BKC) 100 UNITS/ML 35 UNITS SUB-Q (20:57)
[2019-11-04 21:42] LABS: Glucose Point of Care 267 (65-105)
[2019-11-05] VITALS (8 sets, daily range): BP systolic 116–124; BP diastolic 49–63; PULSE 64–74; RESP 16–20; TEMP 36.4–37.7; O2SAT 97–100
[2019-11-05 04:52] LABS: Basophils Absolute Auto 0.1 K/mm3 (0.0-0.1); Basophils Percent Auto 1.3 % (0.2-1.2); Eosinophils Absolute Auto 0.4 K/mm3 (0-0.3); Eosinophils Percent Auto 5.8 % (0-4.4); Hematocrit 28.2 % (42.0-52.0); Hemoglobin 9.3 g/dL (14.0-18.0); Immature Granulocyte Absolute 0.09 K/mm3 (0.00-0.031); Immature Granulocyte Percent A 1.4 % (0-0.5); Lymphocytes Absolute Auto 1.55 K/mm3 (0.9-3.2); Lymphocytes Percent Auto 24.8 % (18.3-44.2); Mean Corpuscular Hemoglobin 30.5 pg (26-34); Mean Corpuscular Volume 92.5 fl (80-100); Mean Platelet Volume 11.3 fl (7.4-10.4); Monocytes Absolute Auto 0.8 K/mm3 (0.1-0.6); Monocytes Percent Auto 12.3 % (2.6-8.5); Neutrophils Absolute Auto 3.4 K/mm3 (1.3-6.7); Neutrophils Percent Auto 54.4 % (45.5-73.1); Platelet Count Result 346 k/mm3 (150-375); Red Blood Count 3.05 M/mm3 (4.6-6.20); Red Cell Distribution Width 13.6 % (11.5-14.5); White Blood Count 6.3 K/mm3 (4.5-10.0)
[2019-11-05 05:08] LABS: Blood Urea Nitrogen 29 mg/dL (9-20); Calcium 9.7 mg/dL (8.4-10.2); Carbon Dioxide 29 mmol/L (22-30); Chloride 97 mmol/L (98-107); Estimated CRCL calculation 36 ml/min; Estimated Glomerular Filt Rate 35; Glucose 238 mg/dL (75-110); Potassium 4.3 mmol/L (3.4-5.0); Sodium 134 mmol/L (137-145)
[2019-11-05 06:43] LABS: Glucose Point of Care 244 (65-105)
[2019-11-05] MEDS: INSULIN ASPART (*BKC) 100 UNITS/ML 10 UNITS SUB-Q ×3 (09:09→17:40)
[2019-11-05] MEDS: INSULIN ASPART (*BKC) 100 UNITS/ML SUB-Q ×3 (09:09→17:40)
[2019-11-05] MEDS: polyethylene glycoL 3350 17 GM POWD.PACK PO (09:10)
[2019-11-05] MEDS: AMIODARONE HCL 200 MG TABLET PO ×2 (09:10→17:39)
[2019-11-05] MEDS: APIXABAN 5 MG TABLET PO ×2 (09:11→17:39)
[2019-11-05] MEDS: DIGOXIN 250 MCG TABLET PO (09:11)
[2019-11-05] MEDS: carvediloL 25 MG TABLET PO ×2 (09:11→19:55)
[2019-11-05] MEDS: POTASSIUM CHLORIDE 10 MEQ TABLET.ER PO (09:11)
[2019-11-05] MEDS: FUROSEMIDE 40 MG TABLET PO (09:11)
[2019-11-05] MEDS: MAGNESIUM OXIDE 400 MG TABLET PO (09:12)
--- NOTE | 2019-11-05 11:58 | PCDIET ---
Nutrition Follow-Up Complete: Nutrition Diagnosis: Inadequate oral intake r/t reduced appetite & stress as evidence by mild wt loss over last few weeks (2-12lbs) Nutrition Goal: PO intake of meals at 75% or greater to maintain wt Goal met. Patient consuming 100% of most meals on diabetic diet. Reports Glucerna makes him feel bloated and is requesting to stop receiving it. Agree with discontinuing supplement since intake is adequate. Last recorded weight is 88.4 kg. Recommend obtaining new weight. Bowel Motility: Patient reports daily BM. Last documented BM on 11/02/19. Labs Reviewed: Glu (238), BUN (29), Cr (1.9), Na (134) Meds Noted: Lasix, Mag-Ox, Novolog, Lantus, Januvia, Miralax, KCl Additional Notes: No documented skin breakdown. Agree with diabetic diet. Will continue to monitor with same goal. Nutrition Monitoring and Evaluation: Follow up every 7 days.
[2019-11-05 12:03] LABS: Glucose Point of Care 327 (65-105)
--- NOTE | 2019-11-05 13:07 | WPDNEURORHBP ---
Subjective Date/time seen: 11/05/19 13:07 Interval history: this 69-year-old diabetic with peripheral neuropathy and poorly controlled diabetes mellitus is here because of the critical illness myopathy / critical illness neuropathy superimposed on diabetic neuropathy he has fatigue and tired his sugars are not decently controlled I had requested medical consult from the hospitalist's yesterday I am hoping they are able to see him today apart from being fatigue and tired he is moving in the rehab and making some progress denies any chest pain shortness of breath fever chills sore throat Review of Systems Review of Systems: All systems reviewed & are unremarkable except as noted in HPI and below Functional Status Ambulation Ability Ability to Ambulate 10 Feet: Standby Assistance Ability to Ambulate 50 Feet With 2 Turns: Standby Assistance Ability to Ambulate 150 Feet: Standby Assistance Ambulation Assistive Devices: Walker, Wheeled Transfers Ability Ability to Transfer In/Out of Chair: Standby Assistance Exam Const: General: comfortable and no acute distress HENMT: General nose exam: Normal nares present Mouth: Yes moist mucous membranes Eyes: General: appearance normal, both eyes and all related structures Neck: Neck: supple and no JVD Resp: Effort & Inspection: normal respiratory effort Auscultation: clear to auscultation bilaterally Cardio: Rate: regular rate Rhythm: regular rhythm GI: GI Palp: Yes Soft to palpation Auscultation: normal bowel sounds Skin: General skin exam: normal color and no rashes or lesions noted Neuro: Other: patient is awake and alert well oriented with normal cranial examination with significant evidence of peripheral neuropathy and myopathy although getting better proximal more than distal weakness along with distal weakness also and depressed to absent reflexes Extrem: General: normal to inspection Psych: Mental Status: mental status grossly normal Objective Data Vital Signs Vital Signs: Vital Signs - 24 hr 11/04/19 14:00 11/04/19 18:28 11/04/19 20:52 Temperature 36.9 C Pulse Rate 70 70 78 Respiratory Rate 18 Blood Pressure 121/45 L Pulse Oximetry 99 11/04/19 22:00 11/05/19 06:00 11/05/19 09:10 Temperature 36.9 C 37.7 C H Pulse Rate 72 66 68 Respiratory Rate 18 16 Blood Pressure 114/54 L 124/63 Pulse Oximetry 98 100 11/05/19 09:11 Temperature Pulse Rate 68 Respiratory Rate Blood Pressure Pulse Oximetry Intake/Output Intake/Output: Intake & Output 11/02/19 11/03/19 11/04/19 11/05/19 23:59 23:59 23:59 23:59 Intake Total 720 720 720 240 Balance 720 720 720 240 Meds/Results Medications: Active Medications Generic Name Dose Route Start Last Admin Trade Name Freq PRN Reason Stop Dose Admin Amiodarone HCl 200 mg 10/28/19 17:00 11/05/19 09:10 Pacerone PO 200 mg BID AYESHA Administration Apixaban 5 mg 10/28/19 17:00 11/05/19 09:11 Eliquis PO 5 mg BID AYESHA Administration Carvedilol 25 mg 10/28/19 21:00 11/05/19 09:11 Coreg PO 25 mg Q12HR AYESHA Administration Dextrose 12.5 gm 10/31/19 14:42 Dextrose 50% Syringe IV PUSH PRN PRN Hypoglycemia Protocol Digoxin 250 mcg 10/29/19 09:00 11/05/19 09:11 Lanoxin Tab PO 250 mcg DAILY AYESHA Administration Furosemide 40 mg 10/29/19 09:00 11/05/19 09:11 Lasix Tablet PO 40 mg DAILY AYESHA Administration Glucagon 1 mg 10/31/19 14:42 Glucagon For Inj IM PRN PRN Hypoglycemia Protocol Glucose 15 gm 10/31/19 14:42 Glutose 15 PO PRN PRN Hypoglycemia Protocol Dextrose 1,000 mls @ 100 mls/hr 10/31/19 14:42 Dextrose 5% 1,000 Ml IVPB PRN PRN Hypoglycemia Protocol Insulin Aspart 10 units 10/30/19 21:34 11/05/19 12:35 Novolog SUB-Q 10 units ACINSULIN AYESHA Administration Insulin Aspart 3 - 6 units 10/31/19 17:00 11/05/19 12:36 Novolog SUB-Q 5 units T
[2019-11-05 18:18] LABS: Glucose Point of Care 271 (65-105)
[2019-11-05] MEDS: INSULIN GLARGINE (*BKC) 100 UNITS/ML 35 UNITS SUB-Q (20:54)
[2019-11-05 21:52] LABS: Glucose Point of Care 246 (65-105)
[2019-11-06] VITALS (7 sets, daily range): BP systolic 127–131; BP diastolic 53–67; PULSE 69–76; RESP 18; TEMP 36.6–37.2; O2SAT 94–99
[2019-11-06 06:54] LABS: Glucose Point of Care 237 (65-105)
[2019-11-06] MEDS: INSULIN ASPART (*BKC) 100 UNITS/ML 10 UNITS SUB-Q ×3 (08:46→18:21)
[2019-11-06] MEDS: INSULIN GLARGINE (*BKC) 100 UNITS/ML 10 UNITS SUB-Q (08:46)
[2019-11-06] MEDS: AMIODARONE HCL 200 MG TABLET PO ×2 (08:48→18:21)
[2019-11-06] MEDS: APIXABAN 5 MG TABLET PO ×2 (08:48→18:21)
[2019-11-06] MEDS: carvediloL 25 MG TABLET PO ×2 (08:49→21:01)
[2019-11-06] MEDS: MAGNESIUM OXIDE 400 MG TABLET PO (08:49)
[2019-11-06] MEDS: FUROSEMIDE 40 MG TABLET PO (08:49)
[2019-11-06] MEDS: DIGOXIN 250 MCG TABLET PO (08:49)
[2019-11-06] MEDS: POTASSIUM CHLORIDE 10 MEQ TABLET.ER PO (08:49)
[2019-11-06] MEDS: polyethylene glycoL 3350 17 GM POWD.PACK PO (08:49)
--- NOTE | 2019-11-06 12:11 | WPDNEURORHBP ---
Subjective Date/time seen: 11/06/19 12:11 Interval history: This 69-year-old gentleman is here because of critical illness myopathy/ neuropathy and at best fairly controlled diabetes mellitus he has working very well and will be discharged on November 06 with home health to follow the popcorn candy maker had seen the patient and the notes were reviewed Review of Systems Review of Systems: All systems reviewed & are unremarkable except as noted in HPI and below Functional Status Ambulation Ability Ability to Ambulate 10 Feet: Independent Ability to Ambulate 50 Feet With 2 Turns: Independent Ability to Ambulate 150 Feet: Independent Ambulation Assistive Devices: Walker, Wheeled Transfers Ability Ability to Transfer In/Out of Chair: Independent Exam Const: General: comfortable and no acute distress HENMT: General nose exam: Normal nares present Mouth: Yes moist mucous membranes Eyes: General: appearance normal, both eyes and all related structures Neck: Neck: supple and no JVD Resp: Effort & Inspection: normal respiratory effort Auscultation: clear to auscultation bilaterally Cardio: Rate: regular rate Rhythm: regular rhythm GI: GI Palp: Yes Soft to palpation Auscultation: normal bowel sounds Skin: General skin exam: normal color and no rashes or lesions noted Neuro: Other: patient is awake and alert and his strength has significantly improved and doing very well walking with a walker and able to perform the most of the activities of daily living evidence of peripheral neuropathy is there any stable Extrem: General: normal to inspection Psych: Mental Status: mental status grossly normal Objective Data Vital Signs Vital Signs: Vital Signs - 24 hr 11/06/19 14:00 11/06/19 18:21 11/06/19 21:01 Temperature 37.1 C Pulse Rate 72 72 76 Respiratory Rate 18 Blood Pressure 131/61 Pulse Oximetry 94 11/06/19 22:00 11/07/19 06:00 11/07/19 08:51 Temperature 37.2 C 37.1 C Pulse Rate 69 66 68 Respiratory Rate 18 18 Blood Pressure 130/67 137/60 Pulse Oximetry 99 99 Intake/Output Intake/Output: Intake & Output 11/04/19 11/05/19 11/06/19 11/07/19 23:59 23:59 23:59 23:59 Intake Total 720 720 720 240 Balance 720 720 720 240 Meds/Results Medications: Active Medications Generic Name Dose Route Start Last Admin Trade Name Freq PRN Reason Stop Dose Admin Amiodarone HCl 200 mg 10/28/19 17:00 11/07/19 08:51 Pacerone PO 200 mg BID AYESHA Administration Apixaban 5 mg 10/28/19 17:00 11/07/19 08:51 Eliquis PO 5 mg BID AYESHA Administration Carvedilol 25 mg 10/28/19 21:00 11/07/19 08:51 Coreg PO 25 mg Q12HR AYESHA Administration Dextrose 12.5 gm 10/31/19 14:42 Dextrose 50% Syringe IV PUSH PRN PRN Hypoglycemia Protocol Digoxin 250 mcg 10/29/19 09:00 11/07/19 08:51 Lanoxin Tab PO 250 mcg DAILY AYESHA Administration Furosemide 40 mg 10/29/19 09:00 11/07/19 08:51 Lasix Tablet PO 40 mg DAILY AYESHA Administration Glucagon 1 mg 10/31/19 14:42 Glucagon For Inj IM PRN PRN Hypoglycemia Protocol Glucose 15 gm 10/31/19 14:42 Glutose 15 PO PRN PRN Hypoglycemia Protocol Dextrose 1,000 mls @ 100 mls/hr 10/31/19 14:42 Dextrose 5% 1,000 Ml IVPB PRN PRN Hypoglycemia Protocol Insulin Aspart 10 units 10/30/19 21:34 11/07/19 07:49 Novolog SUB-Q 10 units ACINSULIN AYESHA Administration Insulin Aspart 4 - 8 units 11/06/19 12:00 11/07/19 07:50 Novolog SUB-Q 4 units TIDWM AYESHA Administration Protocol Insulin Glargine 50 units 11/07/19 11:57 Lantus SUB-Q HS AYESHA Magnesium Oxide 400 mg 10/29/19 09:00 11/07/19 08:52 Mag-Ox PO 400 mg DAILY AYESHA Administration Polyethylene Glycol 17 gm 10/31/19 09:00 11/07/19 08:52 Miralax PO 17 gm QAM AYESHA Administration Potassium Chloride 10 meq 10/29/19 09:00 11/07/19 08:52 Kcl Tablet PO 10 meq
[2019-11-06] MEDS: INSULIN ASPART (*BKC) 100 UNITS/ML SUB-Q ×2 (12:47→18:22)
[2019-11-06 12:59] LABS: Glucose Point of Care 296 (65-105)
--- NOTE | 2019-11-06 15:07 | PM.IMHP ---
H&P: HPI History of Present Illness Chief complaint: Critical Illness Myopathy Narrative: Edgar Bonds is a 69 year old male with PMH significant for T2DM with peripheral neuropathy, hypertension, hyperlipidemia, atrial fibrillation on anticoagulation who is currently admitted to [facility] for critical illness myopathy. He presented to [facility] 10/11/19 with acute mental status changes. During his stay, he developed acute renal failure, acute respiratory failure, and atrial fibrillation with RVR. He was discharged to [facility] after his hospitalization to continue rehabilitation for critical illness myopathy superimposed on peripheral neuropathy. At the time of my evaluation, he has no significant complaints. He reports that he is progressing well from a rehab standpoint. He endorses generalized malaise and weakness but does believe this is improving. He reports mild dyspnea with exertion. He denies chest pain and palpitations. He reports mild vision blurring with his hyperglycemia. He has no other vision complaints. The hospitalist service has been consulted as the patient is having persistent hyperglycemia despite his current insulin regimen. He was on metformin, onglyza, and glyburide for his diabetes prior to his recent hospitalization but his regimen was switched to insulin due to his acute renal failure. His blood sugars have been persistently elevated in the upper 200s-300s. His A1C was repeated 10/29/19 and was 6.8. He is on lantus 35 units QHS and novolog 10 units before meals. He is also on renally dosed sitagliptin. He denies polyphagia and polyuria. He has no other complaints at this time. Review of Systems Review of Systems: Narrative: Constitutional: Endorses generalized malaise and weakness. Denies subjective fever and chills. Denies fatigue. Eyes: Reports occasional blurred vision which he believes is due to persistent hyperglycemia. Reports hx of retinal detachment s/p surgery. ENT: Denies change in hearing, nasal congestion, and dysphagia. Cardiovascular: Denies palpitations and chest pain. Denies PND and orthopnea. Reports occasional lightheadedness with sitting and standing. Respiratory: Denies cough. Reports mild dyspnea on exertion. Gastrointestinal: Denies abdominal pain, nausea, and vomiting. Reports occasional constipation and is on miralax with relief. Denies diarrhea. Genitourinary: Denies dysuria, frequency, urgency, and hesitancy. Musculoskeletal: Denies joint pain and swelling. Skin: Denies lesions and wounds. Neurologic: Denies focal weakness, confusion, and speech change. Reports chronic lower extremity neuropathy. Psychiatric: Denies anxiety and depression. Hematologic: Denies easy bruising and bleeding. All systems reviewed & are unremarkable except as noted in HPI and below PMFSH Past Medical History Medical History (Updated 11/06/19 @ 18:04 by Kiki Calloway PA-C) Atrial fibrillation Diabetes mellitus Hypertension Lumbar stenosis Renal insufficiency Surgical History Surgical History (Updated 11/06/19 @ 16:44 by Kiki Calloway PA-C) H/O eye surgery History of appendectomy Family History Family History Father Diabetes mellitus Hypertension Family history of cardiovascular disease Patient's father is Sibling Diabetes mellitus Hypertension Grandparent Family history of malignant neoplasm Malignant neoplasm of prostate Mother Patient's mother is Other Family history of elevated blood lipids Social History Social History (Updated 11/06/19 @ 17:51 by Kiki Calloway PA-C) Social History: The patient would like to be a full code. He has designate his Laura as his surrogate decision maker. He quit smoking 20 years ago. He has a 20 pack-year smoking hx. Smoking packs per day: 1 Smoking cigarettes per day: 20.0 Years smoked: 20 Smoking pack-years: 20.00 Smoking status:
[2019-11-06 17:18] LABS: Glucose Point of Care 235 (65-105)
[2019-11-06] MEDS: INSULIN GLARGINE (*BKC) 100 UNITS/ML 45 UNITS SUB-Q (21:04)
[2019-11-07 03:28] LABS: Glucose Point of Care 294 (65-105)
[2019-11-07 06:00] VITALS: BP 137/60; PULSE 66; RESP 18; TEMP 37.1; O2SAT 99
[2019-11-07] MEDS: INSULIN ASPART (*BKC) 100 UNITS/ML 10 UNITS SUB-Q ×2 (07:49→12:55)
[2019-11-07] MEDS: INSULIN ASPART (*BKC) 100 UNITS/ML SUB-Q ×2 (07:50→12:55)
[2019-11-07 08:00] VITALS: PULSE 68; RESP 18
[2019-11-07 08:51] VITALS: PULSE 68
[2019-11-07] MEDS: DIGOXIN 250 MCG TABLET PO (08:51)
[2019-11-07] MEDS: AMIODARONE HCL 200 MG TABLET PO (08:51)
[2019-11-07] MEDS: FUROSEMIDE 40 MG TABLET PO (08:51)
[2019-11-07] MEDS: APIXABAN 5 MG TABLET PO (08:51)
[2019-11-07] MEDS: carvediloL 25 MG TABLET PO (08:51)
[2019-11-07] MEDS: MAGNESIUM OXIDE 400 MG TABLET PO (08:52)
[2019-11-07] MEDS: POTASSIUM CHLORIDE 10 MEQ TABLET.ER PO (08:52)
[2019-11-07] MEDS: polyethylene glycoL 3350 17 GM POWD.PACK PO (08:52)
[2019-11-07 11:16] LABS: Glucose Point of Care 221 (65-105)
--- NOTE | 2019-11-07 11:46 | PCCDE ---
diabetes f/up: hospitalist saw yesterday and increased Lantus to 45 units HS, and continued 10 units Novolog at meals plus high dose correction scale and renally dosed Januvia. Pt is being discharged today. Met with pt and instructed on basal bolus insulin regimen with using correction scale. demonstrated how to use insulin pen using training pen and fake injection site; pt performed return demo with some difficulties d/t c/o problems with sight and having cataracts. Discussed tactile ways to navigate the pen but ultimately instructed the patient to have help from his . Referred to instruction in DM book at bedside and to have call with any questions. Reviewed insulin storage and expiration and site selection. Reviewed when to test BG (AC and HS) and record results to share with PCP. Pt sts to have enough testing supplies at home. Reviewed causes, sx and tx of hypoglyemia. Advised to keep glucose tabs for hypo treatment. Pt v/u of all. Pt has a medicare supplement but unsure of name to verify coverage. Would recommend insulin pens: Lantus Solostar and Novolog Flexpen. Pt will need rx for BD Kim pen needles.
--- NOTE | 2019-11-07 12:25 | WPDNEURORHBP ---
Subjective Date/time seen: 11/07/19 12:25 Interval history: this pleasant 69-year-old was here because of critical illness myopathy and underlying diabetes mellitus he has done well in over rehab and is going to be discharged today medication reconciled he does have a follow-up appointment with the primary care physician and also with the balloon sander and the home health will be following him he denies any headache nausea vomiting chest pain shortness of breath fever chills or sore throat Review of Systems Review of Systems: All systems reviewed & are unremarkable except as noted in HPI and below Functional Status Ambulation Ability Ability to Ambulate 10 Feet: Independent Ability to Ambulate 50 Feet With 2 Turns: Independent Ability to Ambulate 150 Feet: Independent Ambulation Assistive Devices: Walker, Wheeled Transfers Ability Ability to Transfer In/Out of Chair: Independent Exam Const: General: comfortable and no acute distress HENMT: General nose exam: Normal nares present Mouth: Yes moist mucous membranes Eyes: General: appearance normal, both eyes and all related structures Neck: Neck: supple and no JVD Resp: Effort & Inspection: normal respiratory effort Auscultation: clear to auscultation bilaterally Cardio: Rate: regular rate Rhythm: regular rhythm GI: GI Palp: Yes Soft to palpation Auscultation: normal bowel sounds Skin: General skin exam: normal color and no rashes or lesions noted Neuro: Other: patient remains awake alert well oriented in time place person his strength has significantly improved his walking with the walker and able to perform these activities of daily living most the time without any shortness of breath or chest pain Extrem: General: normal to inspection Psych: Mental Status: mental status grossly normal Objective Data Vital Signs Vital Signs: Vital Signs - 24 hr 11/06/19 14:00 11/06/19 18:21 11/06/19 21:01 Temperature 37.1 C Pulse Rate 72 72 76 Respiratory Rate 18 Blood Pressure 131/61 Pulse Oximetry 94 11/06/19 22:00 11/07/19 06:00 11/07/19 08:51 Temperature 37.2 C 37.1 C Pulse Rate 69 66 68 Respiratory Rate 18 18 Blood Pressure 130/67 137/60 Pulse Oximetry 99 99 Intake/Output Intake/Output: Intake & Output 11/04/19 11/05/19 11/06/19 11/07/19 23:59 23:59 23:59 23:59 Intake Total 720 720 720 240 Balance 720 720 720 240 Meds/Results Medications: Active Medications Generic Name Dose Route Start Last Admin Trade Name Freq PRN Reason Stop Dose Admin Amiodarone HCl 200 mg 10/28/19 17:00 11/07/19 08:51 Pacerone PO 200 mg BID AYESHA Administration Apixaban 5 mg 10/28/19 17:00 11/07/19 08:51 Eliquis PO 5 mg BID AYESHA Administration Carvedilol 25 mg 10/28/19 21:00 11/07/19 08:51 Coreg PO 25 mg Q12HR AYESHA Administration Dextrose 12.5 gm 10/31/19 14:42 Dextrose 50% Syringe IV PUSH PRN PRN Hypoglycemia Protocol Digoxin 250 mcg 10/29/19 09:00 11/07/19 08:51 Lanoxin Tab PO 250 mcg DAILY AYESHA Administration Furosemide 40 mg 10/29/19 09:00 11/07/19 08:51 Lasix Tablet PO 40 mg DAILY AYESHA Administration Glucagon 1 mg 10/31/19 14:42 Glucagon For Inj IM PRN PRN Hypoglycemia Protocol Glucose 15 gm 10/31/19 14:42 Glutose 15 PO PRN PRN Hypoglycemia Protocol Dextrose 1,000 mls @ 100 mls/hr 10/31/19 14:42 Dextrose 5% 1,000 Ml IVPB PRN PRN Hypoglycemia Protocol Insulin Aspart 10 units 10/30/19 21:34 11/07/19 07:49 Novolog SUB-Q 10 units ACINSULIN AYESHA Administration Insulin Aspart 4 - 8 units 11/06/19 12:00 11/07/19 07:50 Novolog SUB-Q 4 units TIDWM AYESHA Administration Protocol Insulin Glargine 50 units 11/07/19 11:57 Lantus SUB-Q HS [facility] Magnesium Oxide 400 mg 10/29/19 09:00 11/07/19 08:52 Mag-Ox PO 400 mg DAILY AYESHA Administration Polyethylene Glycol 17 gm
[2019-11-07 12:39] LABS: Glucose Point of Care 238 (65-105)
--- NOTE | 2019-11-14 09:41 | DS_ITS ---
DATE OF DISCHARGE: 11/07/2019 DISCHARGE REHABILITATION DIAGNOSIS: Primary rehab impairment category of neurological condition with etiological diagnosis of critical illness myopathy superimposed on peripheral neuropathy secondary to underlying diabetes mellitus. DISCHARGE ACTIVE COMORBID CONDITIONS: Diabetes mellitus with peripheral neuropathy. REASON FOR ADMISSION: A 69-year-old right-handed male with past medical history of hypertension and diabetes mellitus with peripheral neuropathy, presented to [facility] on 10/11/2019, with acute mental status changes. The patient was shaking, not following any verbal commands, and his gaze was deviated to the left side. EMS was called. His blood sugar at that time was 162 as per the , but EMS found it to be only 33. He received D50 and subsequently vomited in the emergency room. CT scan of the head documented left thalamic stroke and small abnormality within the right thalamus as well. He was noted to have increased interstitial thickening of the bases of the lungs on the CT of the chest. He was started on IV Rocephin in the emergency room along with calcium gluconate, 10 units of regular insulin, and 100 mg of IV Lasix for hyperkalemia, but he developed worsening respiratory status and desaturated down to 70s, became agitated. He was noted to be with flash pulmonary edema, elevated hypertension, and found to have a chest x-ray, extensive bilateral interstitial reticular opacity suggestive of edema or infiltration. Fluids were stopped. He was intubated, sedated, and started on mechanical ventilation, admitted to ICU. On 10/12/2019, automatic riveting machine operator was consulted for acute renal failure with hyperkalemia, which are worsened by the succinylcholine. Groin catheter was placed, which was used for temporary dialysis to correct the metabolic acidosis and hyperkalemia. All his cultures were negative. COVID-19 testing was negative. He was treated with vancomycin, cefepime, and azithromycin. Diuresis ended up extubated on 10/16/2019, placed on CPAP, and were transitioned to BiPAP and eventually wean to high-flow nasal cannula on 10/20/2019. Hemodialysis catheter was removed on 10/20/2019. His creatinine was 1.4. Subsequently, he was on room air. Cardiology saw the patient on 10/22/2019, for new atrial fibrillation with rapid ventricular response. Echo revealed no valvular disease and no atrial fibrillation in the past. He required a bolus of amiodarone x5. His p.o. dose was increased to 400 mg t.i.d. for 48 hours. In addition, they added the renal dose of digoxin and continued the Coreg also. He was noted to have elevated troponin, which were attributed to demand ischemia from respiratory failure. His echocardiogram was normal. He was transitioned from heparin to the anticoagulation. He failed swallow study on 10/20/2019. He continued to have impaired balance, decreased motor control, and decreased safety awareness. He was started on Eliquis and was transferred to the rehab. He has not had any contact with the patient, who has traveled outside the area and he himself did not come in contact with any person with the COVID-19. LEVEL OF FUNCTION AT THE TIME OF ADMISSION: The patient was independent eating, required setup for oral hygiene, partial assistance for toileting, bathing, supervision for upper body dressing, partial assistance for lower body dressing, supervision for footwear. He was independent, rolling in bed, required supervision for sit to lying, lying to sitting, partial assistance for sit to stand, chair transfer, toilet transfer, and car transfer. He was unable to walk 10 feet, 50 feet with 2 turns, 150 feet, 10 feet on uneven surfaces, 4 steps, 12 steps. He required partial assistance for curb or step picking up object, required setup for the wheelchair fo
== END 2019-11-07 13:30 | disposition home health service (06) | DRG 92 ==
PROVIDERS: Admitting Provider Psychiatry & Neurology Neurology; PCP Family Medicine; Visit Provider Psychiatry & Neurology Neurology
DX: G72.81 Critical illness myopathy (principal); G62.81 Critical illness polyneuropathy; E87.1 Hypo-osmolality and hyponatremia; E11.42 Type 2 diabetes mellitus with diabetic polyneuropathy; E87.5 Hyperkalemia; E78.2 Mixed hyperlipidemia; E11.65 Type 2 diabetes mellitus with hyperglycemia; E11.649 Type 2 diabetes mellitus with hypoglycemia without coma; I10 Essential (primary) hypertension; I48.91 Unspecified atrial fibrillation; K63.5 Polyp of colon; L40.9 Psoriasis, unspecified; R13.10 Dysphagia, unspecified; Z86.73 Personal history of transient ischemic attack (TIA), and cerebral infarction without residual deficits; Z79.4 Long term (current) use of insulin; Z87.891 Personal history of nicotine dependence; Z87.09 Personal history of other diseases of the respiratory system
CPT/HCPCS: 36415; 80048; 80061; 83036; 85025; 97110; 97116; 97161; 97165; 97530; 97535; 97542; A9270; J1815

== ENCOUNTER 2020-04-21 10:07 | Outpatient (CLI) | payer MEDICARE, SELFPAY ==
--- NOTE | ~2020-04-21 | MR_ITS ---
EXAMINATION: MR cervical spine wo con DATE: 04/21/2020 11:19 INDICATION: Radiculopathy. TECHNIQUE: Magnetic resonance imaging (MRI) of the cervical spine was performed without intravenous c ontrast. Sequences included sagittal T2-weighted FSE, sagittal T2-weighted FS FSE, sagittal T1-weight ed FSE, axial MERGE and axial T2-weighted FSE. COMPARISON: None FINDINGS: There is mild motion artifact on a few sequences which only minimally limits evaluation. There is sug gestion of a marrow replacing lesion in the C7 vertebral body which appears to extend into the product advisor ior elements on the left with hyperexpansion or destruction of the left pedicle and transverse proces s. There is associated pathologic burst fracture with approximately 40% central vertebral body height loss of the superior endplate is difficult to discern and may have been eroded. There is also proxim ally 4 mm retropulsion versus extraosseous extension of the mass on the left which contributes to yodit tral canal stenosis which will be further detailed below. There is also extraosseous extension of the mass into the paravertebral soft tissues along left anterior margin of the vertebral body as well as into the left neural foramen. No abscess or significant inflammatory stranding in the surrounding fa t to suggest infection and would favor a malignant process. 1-2 mm retrolisthesis C5 on C6. Remaining cervical vertebral body heights are normal. Likely chronic mild anterior wedging at T1. There is an additional T2 hyperintense lesion in the T1 vertebral body which could represent either an additional metastatic lesion or an atypical hemangioma. Annular fissure and posterior disc extrusion at C4-C5 w ithout significant disc height loss. Mild disc height loss at C5-C6. Moderate disc height loss at C6- C7. Cord signal intensity is normal. The following disc levels are specifically discussed: C2-C3: The disc does not extend beyond the endplate margin. There is no uncovertebral joint osteoarth ritis. There is mild bilateral facet joint osteoarthritis. There is no neural foraminal stenosis. The re is no central canal stenosis. C3-C4: The disc does not extend beyond the endplate margin. There is mild bilateral uncovertebral venkatesh nt osteoarthritis. There is moderate left facet joint osteoarthritis. There is mild left neural myra inal stenosis. There is no central canal stenosis. C4-C5: Annular fissure with central disc extrusion with disc material extending couple millimeters ce phalad to the level of the inferior endplate of C4 which indents the central ventral surface of the c ord. There is mild bilateral uncovertebral joint osteoarthritis. There is mild bilateral facet joint osteoarthritis. There is mild bilateral neural foraminal stenosis. There is mild central canal stenos is. C5-C6: Disc is bulging with superimposed annular fissure and left paracentral disc protrusion. There is severe bilateral uncovertebral joint osteoarthritis. There is mild bilateral facet joint osteoarth ritis. There is moderate to severe bilateral neural foraminal stenosis. There is mild central canal s tenosis. C6-C7 and C7-T1: Retropulsion of the central to left side of the posterior margin of the C7 vertebral body. At the level of the neural foramen the cortex of the vertebral body and pedicle is indistinct and has likely been eroded with extraosseous extension of the mass into both the C6-C7 and C7-T1 neur al foramina. There is mild bilateral facet joint osteoarthritis at both C6-C7 and C7-T1. There is mil d to moderate right-sided and moderate to severe left-sided neural foraminal stenosis at at both C6-C 7 and C7-T1 There is mild to moderate central canal stenosis with indentation of the left ventral melinda face of the cord and with effacement of the surrounding CSF fluid signal around the left half of the cord. IMPRESSION: 1. 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
== END 2020-04-21 10:08 | disposition home or self-care (01) ==
LOC: ANHIMG 10:20
PROVIDERS: PCP Family Medicine; Visit Provider Family Medicine
DX: M84.48XA Pathological fracture, other site, initial encounter for fracture (principal); M54.12 Radiculopathy, cervical region; G95.9 Disease of spinal cord, unspecified; M48.02 Spinal stenosis, cervical region; M48.07 Spinal stenosis, lumbosacral region
CPT/HCPCS: 72141

== ENCOUNTER 2020-04-23 07:36 | Outpatient (CLI) | payer MEDICARE, SELFPAY ==
--- NOTE | ~2020-04-23 | NM_ITS ---
EXAMINATION: NM bone scan whole body DATE: 04/23/2020 10:49 INDICATION: Cervical bone lesions suspicious for metastatic disease with pathologic fracture on prior MRI. TECHNIQUE: 44.8 mCi Tc-99m HDP was administered intravenously. Delayed whole-body scintigrams were o btained. COMPARISON: Cervical spine MRI dated 04/21/2020 and lumbar spine MR dated 02/05/2019. FINDINGS: There is increased uptake in the region of C7 corresponding to the suspicious expansile bone lesion s een on prior MRI. Additional suspicious foci of bone uptake are seen at the cephalad aspect of the st ernum, at several ribs most prominently on the left at the posterior ninth rib and on the right at th e lateral ninth rib. There are a couple foci of more subtle suspicious increased uptake at the right humeral head and 1 in the left supra-acetabular ilium. Asymmetric increased uptake at the right acrom ioclavicular joint could be either degenerative or related to an additional bone lesion. Relatively s ymmetric mild likely degenerative uptake at the bilateral sternoclavicular joints. Additional mild li matt degenerative joint centered uptake anteriorly at the right ankle and at the radial aspect of the right carpus. Photopenic defect at the upper pole of the left kidney corresponding to a large renal cyst on lumbar spine MR. IMPRESSION: 1. Increased uptake at the destructive bone lesion at C7 along with a few additional scattered suspic ious bone lesions at the sternum, bilateral ribs, right humeral head and left ilium which also suspic ious for metastatic disease. Reviewed, dictated and finalized at location A. CH SHOVEL OPERATOR IMPRESSION: 1. Increased uptake at the destructive bone lesion at C7 along with a few addit ional scattered suspicious bone lesions at the sternum, bilateral ribs, right h umeral head and left ilium which also suspicious for metastatic disease.
== END 2020-04-23 07:37 | disposition home or self-care (01) ==
PROVIDERS: PCP Family Medicine; Visit Provider Family Medicine
DX: G95.89 Other specified diseases of spinal cord (principal)
CPT/HCPCS: 78306; A9561

== ENCOUNTER 2020-04-25 08:46 | Outpatient (CLI) | payer MEDICARE, SELFPAY ==
--- NOTE | ~2020-04-25 | CT_ITS ---
EXAMINATION: CT chest abdomen pelvis wo con DATE: 04/25/2020 09:47 INDICATION: Bone lesions on cervical spine MRI and bone scan TECHNIQUE: Transaxial computed tomographic images of the chest, abdomen, and pelvis were obtained wit hout intravenous contrast. The dose-length product (DLP) was 1411.12 mGy-cm. Automated exposure contr ol and iterative reconstruction technique were employed. COMPARISON: None FINDINGS: CHEST CT: There is a triangular opacity in the posterolateral aspect of the right upper lobe. More centrally, w hat appears to be an endobronchial calcification is seen. There is a 1.2 cm subsolid nodule of the ri ght middle lobe on image 61. A 9 mm subsolid nodule is present in the right middle lobe on image 67. There is no pleural effusion or pneumothorax. No pathologically enlarged thoracic lymph nodes are emilie ntified. The heart size is normal. Calcified coronary artery atherosclerosis is noted. Calcified pulm onary nodules and calcified right hilar and mediastinal lymph nodes are consistent with old granuloma tous disease. There is a lytic lesion of the C7 vertebral body with pathologic fracture. A lytic lesi on is also noted in the left lamina and pedicle of C7.In addition, there are multiple small lucencies involving several vertebral bodies, sternum, and several bilateral ribs. ABDOMEN/PELVIS CT: The liver, pancreas, gallbladder, and adrenal glands are normal. There is a 6.8 x 5.0 cm cyst of the left kidney with thin septation and thin septal calcification. Multiple smaller cysts are noted in navarro th kidneys. There is calcified atherosclerosis of the aorta and many of the other arteries. No pathol ogically enlarged abdominal or pelvic lymph nodes are identified. There is no free intraperitoneal ga s or evidence of bowel obstruction. There is a 2.1 x 0.8 cm peripherally calcified soft tissue densit y adjacent to the right hepatic lobe on image 116. A similar-appearing soft tissue density measuring 2.5 x 1.5 cm is seen adjacent to the inferior pole of the spleen. These likely reflect sequela of A l arge volume of colonic stool is present. There are lytic lesions of the left ilium as well as multipl e lumbar vertebral bodies. IMPRESSION: 1. Triangular opacity in the posterior lateral aspect of the right upper lobe distal to a a possible endobronchial calcification, likely atelectasis and postobstructive pneumonia. 2. Subsolid nodules of the right middle lobe. Recommend follow-up CT in 3-6 months to evaluate the townsend bsolid nodules and right upper lobe opacity. 3. Widespread osseous lytic lesions, consistent with metastatic disease or myeloma. 4. Small soft tissue densities of the upper abdomen adjacent to the liver and spleen which may reflec t prior trauma or old granulomatous disease. Reviewed, dictated and finalized at location A. URE ENLARGER IMPRESSION: 1. Triangular opacity in the posterior lateral aspect of the right upper lobe d istal to a a possible endobronchial calcification, likely atelectasis and posto bstructive pneumonia. 2. Subsolid nodules of the right middle lobe. Recommend follow-up CT in 3-6 mon ths to evaluate the subsolid nodules and right upper lobe opacity. 3. Widespread osseous lytic lesions, consistent with metastatic disease or myel west. 4. Small soft tissue densities of the upper abdomen adjacent to the liver and s pleen which may reflect prior trauma or old granulomatous disease.
[2020-04-25 09:26] LABS: Estimated Glomerular Filt Rate 26
== END 2020-04-25 08:47 | disposition home or self-care (01) ==
PROVIDERS: PCP Family Medicine; Visit Provider Family Medicine
DX: C79.51 Secondary malignant neoplasm of bone (principal); R91.8 Other nonspecific abnormal finding of lung field
CPT/HCPCS: 71250; 74176

== ENCOUNTER 2020-05-13 15:58 | IRF | payer MEDICARE, SELFPAY ==
--- NOTE | ~2020-05-13 | XR_ITS ---
XR cervical spine 4-5V 05/22/2020 13:24 Indication: Follow-up post surgery Procedure: 5 views of the cervical spine Comparison: No prior studies for comparison. Findings: Vertebral body and disc heights are preserved. Straightening of cervical lordosis. There is spinal fusion hardware extending from C4-T2. Hardware appears to be intact. No prevertebral soft tis svitlana swelling. Odontoid process within normal limits. Lung apices are unremarkable. Impression: 1: No acute abnormality of the cervical spine. Reviewed, dictated and finalized at location A. UREMENT SERVICES MANAGER Impression: 1: No acute abnormality of the cervical spine.
[2020-05-13 15:30] VITALS: O2SAT 97
--- NOTE | 2020-05-13 15:50 | ADMGEN ---
This patient, Edgar Bonds, was admitted to [facility] Room 225-01. Patient/family oriented to hospital policies and general routines including ID bracelet, bed and alarms, visiting hours, pain management, procedures, bathroom and other care routines, personal items, smoking policy, room service/diet, and visiting hours. Information on how to activate the Rapid Response Team has been discussed. Patient/Family are encouraged to report perceived risks to care and to ask questions if they do not understand what they are told or what they should do. Patient arrived to floor at 1505, he is alert and oriented, report from EMS B/P 142/77, P-77, R-18 O2 sats 99%, He is on 2liters of O2 per nasal cannula, per EMS sats will drop to low 70's without oxygen. Of note, report was called on 05/12 to us and then patient had a change in condition, no report was called to [facility] prior to arrival today to update status of patient. At 1530 this nurse was terri the patients room completing assessments and nurse from [facility] called to give me report. i asked if we could have her name and phone number, she declined and stated she would call back.
[2020-05-13 17:04] LABS: Glucose Point of Care 168 (65-105)
[2020-05-13 17:19] VITALS: BMI 25.2
[2020-05-13] MEDS: ACETAMINOPHEN 500 MG TABLET PO ×2 (18:20→23:18)
[2020-05-13] MEDS: INSULIN ASPART (*BKC) 100 UNITS/ML SUB-Q (18:21)
--- NOTE | 2020-05-13 18:37 | PC.NURSE ---
Dr. Gomez aware of patients arrival OK'd for TLSO brace to be off while in bed and on while patient is up, also made aware that patient has digoxin, valium and eliquis that is all on hold from pharmacy
[2020-05-13] MEDS: oxyCODONE HCL (*CRX) 5 MG TAB IR 10 MG PO (20:08)
[2020-05-13] MEDS: ENOXAPARIN 30 MG/0.3 ML SYRINGE SUB-Q (20:09)
[2020-05-13 20:10] VITALS: PULSE 88
[2020-05-13] MEDS: carvediloL 25 MG TABLET PO (20:10)
[2020-05-13] MEDS: INSULIN GLARGINE (*BKC) 100 UNITS/ML 15 UNITS SUB-Q (20:18)
[2020-05-13 20:31] LABS: Glucose Point of Care 134 (65-105)
[2020-05-13 22:36] VITALS: PULSE 88; O2SAT 95
[2020-05-13] MEDS: MELATONIN 3 MG TABLET PO (23:18)
[2020-05-14 00:53] LABS: Glucose Point of Care 166 (65-105)
[2020-05-14 04:54] LABS: Basophils Absolute Auto 0.1 K/mm3 (0.0-0.1); Basophils Percent Auto 0.6 % (0.2-1.2); Eosinophils Absolute Auto 0.2 K/mm3 (0-0.3); Hematocrit 24.4 % (42.0-52.0); Hemoglobin 8.1 g/dL (14.0-18.0); Immature Granulocyte Absolute 0.09 K/mm3 (0.00-0.031); Lymphocytes Absolute Auto 1.23 K/mm3 (0.9-3.2); Lymphocytes Percent Auto 13.2 % (18.3-44.2); Mean Corpuscular HGB Conc 33.2 g/dl (32-36); Mean Corpuscular Hemoglobin 28.8 pg (26-34); Mean Corpuscular Volume 86.8 fl (80-100); Mean Platelet Volume 10.4 fl (7.4-10.4); Monocytes Percent Auto 10.4 % (2.6-8.5); Neutrophils Absolute Auto 6.8 K/mm3 (1.3-6.7); Neutrophils Percent Auto 72.8 % (45.5-73.1); Platelet Count Result 380 k/mm3 (150-375); Red Blood Count 2.81 M/mm3 (4.6-6.20); Red Cell Distribution Width 14.9 % (11.5-14.5); White Blood Count 9.3 K/mm3 (4.5-10.0)
[2020-05-14] MEDS: ACETAMINOPHEN 500 MG TABLET PO ×4 (05:08→23:23)
[2020-05-14 05:13] LABS: Anion Gap 5 mmol/L (8-16); Blood Urea Nitrogen 23 mg/dL (9-20); Calcium 9.9 mg/dL (8.4-10.2); Carbon Dioxide 34 mmol/L (22-30); Chloride 93 mmol/L (98-107); Estimated CRCL calculation 51 ml/min; Estimated Glomerular Filt Rate 55; Glucose 218 mg/dL (75-110); Potassium 4.3 mmol/L (3.4-5.0); Sodium 132 mmol/L (137-145)
[2020-05-14 05:55] VITALS: BP 157/61; PULSE 78; RESP 22; TEMP 37.1; O2SAT 96
[2020-05-14 06:07] LABS: Glucose Point of Care 184 (65-105)
[2020-05-14] MEDS: INSULIN ASPART (*BKC) 100 UNITS/ML SUB-Q ×3 (09:28→17:48)
[2020-05-14] MEDS: oxyCODONE HCL (*CRX) 5 MG TAB IR 10 MG PO ×3 (09:32→23:22)
[2020-05-14 09:33] VITALS: PULSE 78
[2020-05-14] MEDS: carvediloL 25 MG TABLET PO ×2 (09:33→21:01)
[2020-05-14] MEDS: ESCITALOPRAM OXALATE 10 MG TABLET PO (09:33)
[2020-05-14] MEDS: CYCLOBENZAPRINE HCL 5 MG TABLET PO ×2 (09:33→15:12)
[2020-05-14] MEDS: polyethylene glycoL 3350 17 GM POWD.PACK PO (09:34)
[2020-05-14] MEDS: LOSARTAN POTASSIUM 100 MG TABLET PO (09:34)
[2020-05-14] MEDS: LIDOCAINE 5% PATCH 1 PATCH TOPICAL (09:34)
--- NOTE | 2020-05-14 10:38 | WPDREHABHP ---
H&P: HPI History of Present Illness Date/Time: 05/14/20 10:38 Chief complaint: Cervical spine metastasis and stenosis Narrative: Edgar Bonds is a 69 year old maleHISTORY OF PRESENT ILLNESS: the patient's primary rehab impairment category is orthopedic /other with etiological diagnosis of cervical spine Monae stasis and stenosis. 69 years old male with a past medical history of diabetes mellitus, hypertension, and lumbar stenosis presented to [facility] on April 28, 2020 with left upper extremity weakness, radicular pain and increased confusion. The patient is reported to the physician that he exercises regularly, was completing his ADL as, and was fairly active despite the pain. He began to experience significant fatigue which was impacting his daily life significantly, to include weight loss. The patient developed left shoulder pain that radiated to the elbow, followed by left arm numbness and tingling sensation. Initially was evaluated by his primary care physician and referred to physical therapy. He was also tried on a course of steroids which was stopped approximately 2 weeks ago, without any relief. He underwent an MRI of his spine at [facility] which showed C7 pathological burst fracture and associated tumor extending into posterior elements as well as extra osseous paravertebral soft tissue extension, lesion of C6 , T1, and T2 vertebral bodies. He then underwent a CT of the chest, pelvis, abdomen for evaluation for primary malignancy which showed multiple lytic lesions throughout the thoracolumbar, cervical spine, pelvis, left kidney mass, cystic worse solid mass, and right upper lobe broncholith with postobstructive atelectasis and pneumonia. While undergoing the outpatient workup, he became lethargic which prompted his admission. In the emergency room, on initial evaluation his lab was with creatinine of 2.49 BUN of 53 calcium of 12.2 potassium of 5.0 sodium of 135 and WBCs of 10.6. He was fluid resuscitated for hypercalcemia,. On May 01, 2020 the patient had an unwitnessed fall out of his stretcher after sonographic exam was completed. The patient was stable on exam by the physician. 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 The patient underwent a posterior cervical approach 2 tumor debulking and posterior instrumented fusion on May 08, 2020 by alize. Postoperative complications have included left arm weakness, encephalopathy, hypercalcemia, acute kidney injury, hyponatremia, and hypokalemia. Hemo vac drain x2 and sutures were removed on May 11, 2020. The patient will follow up with outpatient Oncology at [facility] in [place] with 1st appointment already scheduled for May 25, 2020. He was discharged to rehab on aspirin, Plavix, and Lovenox which will be continued up until he is ambulating 150ft consistently.COVID: The patient has not traveled outside the [place] or had any contact with someone who is ill that has traveled outside the [place] in the past 21 days. The patient has not traveled to an area of the [place] there is experiencing known transmission of the Coronavirus and has not had close personal contact with anyone that has. The patient does not have a fever. The patient is not experiencing lower respiratory illness symptoms. The patient has been tested for COVID-19 on 04/28 and again on 05/01 both tests were negative. : Therapy was initiated at the acute care facility and the patient was transferred to us from [facility] on May 12, 2020 # Surgery or falls: the patient has had a major surgery in the last 100 days. The patient has had no falls in the last year. The patient has had no falls with injury in the last year # past medical history: insulin-dependent diabetes mellitus type 2, hypertension, lumbar stenosis, atrial fibrillation, chronic kidney disease, and skin cancer. PAST SURGI
[2020-05-14 11:47] LABS: Glucose Point of Care 156 (65-105)
[2020-05-14] MEDS: DOCUSATE SODIUM 400 MG/400 ML ENEMA RECTAL (12:51)
--- NOTE | 2020-05-14 13:40 | RPD ---
INDIVIDUALIZED PLAN OF CARE FOR Edgar Bonds Brief Synthesis of Pre-Admission Screen, Post-Admission Evaluation and Therapy Evaluations: The patient presents to rehab with left UE weakness and radicular pain status post posterior cervical approach to tumor debulking and posterior instrumented fusion. Comorbidities include cervical spine metastasis and stenosis, left arm weakness, encephalopathy, hypercalcemia, acute kidney injury, hyponatremia, hypokalemia, diabetes mellitus, and hypertension. The complexity of the patient's medical management, nursing, and therapy needs require an inpatient rehab hospital stay with a physician-led interdisciplinary team approach. The patient?s needs will be best met in an intensive program vs. at a lower level of care. The patient requires physician services for medical oversight, management of post-op complications in setting of present comorbidities, and pain management. The patient requires nursing services for anticoagulation therapy, diabetes training, DVT prophylactics, infection protection, medication management and education, pressure relief, and wound care. Deficits include:ADLs, Balance, Endurance, Family Training/Education, Mobility, Pain Management, ROM, Safety, Strength, and Transfers. Core Worker/Case Management for: Discharge Planning and Patient/Family Counseling Physical Therapy: 5 days per week for 90 minutes. Treatments may include: Therapeutic Exercise, Gait Training, Neuromuscular Re-education, Transfer Training, Community Reintegration, Bed Mobility, Patient/Family Education, Wheelchair Mobility Group Therapy/Concurrent Therapy Rationales: -Improve attention span during functional activities in a distracted environment. -Enhance problem solving and/or adequate judgment skills during functional activities in a distracted environment. -Promote increased safety awareness in a distracted environment to reduce fall risk with functional tasks, transfers, and ambulation to allow a more safe, self-sufficient return to the home environment. -Improve dynamic balance skills to promote safety and independence with functional activities in a distracted environment for maximum gain. Occupational Therapy: 5 days per week for 90 minutes. Treatments may include: Therapeutic Exercise, Therapeutic Activity, Cognitive Training, Self-Care Transfer Training, Community Reintegration, Home Management, Patient/Family Education, Wheelchair Mobility Training, Energy Conservation Training Group Therapy/Concurrent Therapy Rationales: -Allow therapist to observe and teach generalization and carry-over of skills learned in individual therapy. -Enhance problem solving and sequencing skills during therapeutic activities in a distracted environment. -Promote increased safety awareness in a realistic setting to reduce fall risk with functional tasks due to visual and verbal distractions. -Increase functional level with ADLs, ADL transfers and use of adaptive equipment through therapeutic activities with others while promoting safety to allow a more safe, self-sufficient return home. Medical Prognosis: Good Anticipated Length of Stay: 10 days Rehab Goals: Eating Goal: 06-Independent Oral Hygiene Goal: 06-Independent Toileting Hygiene Goal: 06-Independent Shower/Bathe Self Goal: 06-Independent Upper Body Dressing Goal: 06-Independent Lower Body Dressing Goal: 06-Independent Putting On/Taking Off Footwear Goal: 06-Independent Rolling Left and Right Goal: 06-Independent Sit to Lying Goal: 06-Independent Lying to Sitting on Side of Bed Goal: 06-Independent Sit to Stand Goal: 06-Independent Chair/[place] Transfer Goal: 06-Independent Toilet Transfer Goal: 06-Independent Car Transfer Goal: 06-Independent Walk 10' Goal: 06-Independent Walk 50' with Two Turns Goal: 06-Independent Walk 150' Goal: 06-Independent Walk 10' on Uneven Surface Goal: 06-Independent 1 Step (Curb) Goal: 04-Supervision or Touching Assistance 4 Steps Goal
[2020-05-14 14:00] VITALS: BP 105/52; PULSE 78; RESP 20; TEMP 37; O2SAT 96
[2020-05-14 15:38] VITALS: BMI 25.2
--- NOTE | 2020-05-14 17:02 | PC.NURSE ---
Insisted this morning that he needed an enema after calling me in to look if he had something hanging out of rectum/hemorrhoids. Upon assessment nothing seen. Spoke with Dr. Gomez because patinet stated in no discomfort or pain and appetite good, but that he needed an enema. Ordered with very little results, but patient appears content at this time.
[2020-05-14 17:03] LABS: Glucose Point of Care 186 (65-105)
[2020-05-14] MEDS: rOPINIRole HCL 0.25 MG TABLET PO (17:47)
[2020-05-14 20:40] VITALS: PULSE 75; RESP 18; O2SAT 100
[2020-05-14] MEDS: INSULIN GLARGINE (*BKC) 100 UNITS/ML 15 UNITS SUB-Q (20:58)
[2020-05-14 21:01] VITALS: PULSE 76
[2020-05-14] MEDS: MELATONIN 3 MG TABLET PO (21:01)
[2020-05-14] MEDS: DOCUSATE SODIUM 100 MG CAPSULE PO (21:01)
[2020-05-14 22:00] VITALS: BP 141/63; PULSE 75; RESP 18; TEMP 36.3; O2SAT 100
[2020-05-14] MEDS: ENOXAPARIN 30 MG/0.3 ML SYRINGE SUB-Q (23:17)
[2020-05-14 23:33] LABS: Glucose Point of Care 182 (65-105)
[2020-05-15] MEDS: oxyCODONE HCL (*CRX) 5 MG TAB IR 10 MG PO ×3 (04:59→20:29)
[2020-05-15] MEDS: ACETAMINOPHEN 500 MG TABLET PO ×3 (05:00→17:39)
[2020-05-15 05:54] VITALS: BP 116/62; PULSE 73; RESP 19; TEMP 36.1; O2SAT 100
[2020-05-15 07:00] LABS: Glucose Point of Care 167 (65-105)
[2020-05-15 09:40] VITALS: PULSE 73
[2020-05-15] MEDS: carvediloL 25 MG TABLET PO ×2 (09:40→20:16)
[2020-05-15] MEDS: DOCUSATE SODIUM 100 MG CAPSULE PO ×2 (09:40→20:16)
[2020-05-15] MEDS: INSULIN ASPART (*BKC) 100 UNITS/ML SUB-Q ×4 (09:42→17:37)
[2020-05-15] MEDS: ESCITALOPRAM OXALATE 10 MG TABLET PO (09:43)
[2020-05-15] MEDS: LIDOCAINE 5% PATCH 1 PATCH TOPICAL (09:43)
[2020-05-15] MEDS: LOSARTAN POTASSIUM 100 MG TABLET PO (09:43)
[2020-05-15] MEDS: rOPINIRole HCL 0.25 MG TABLET PO ×3 (09:44→17:38)
[2020-05-15] MEDS: polyethylene glycoL 3350 17 GM POWD.PACK PO (09:44)
[2020-05-15 12:12] LABS: Glucose Point of Care 175 (65-105)
[2020-05-15 14:00] VITALS: BP 106/73; PULSE 82; RESP 20; TEMP 37.1; O2SAT 97
[2020-05-15 17:26] LABS: Glucose Point of Care 226 (65-105)
[2020-05-15] MEDS: INSULIN GLARGINE (*BKC) 100 UNITS/ML 15 UNITS SUB-Q (20:15)
[2020-05-15 20:16] VITALS: PULSE 84
[2020-05-15] MEDS: ENOXAPARIN 30 MG/0.3 ML SYRINGE SUB-Q (20:16)
[2020-05-15] MEDS: MELATONIN 3 MG TABLET PO (20:17)
[2020-05-15 20:35] LABS: Glucose Point of Care 231 (65-105)
[2020-05-15 22:00] VITALS: BP 131/55; PULSE 84; RESP 18; TEMP 37.2; O2SAT 98
[2020-05-16] MEDS: CYCLOBENZAPRINE HCL 5 MG TABLET PO ×2 (00:53→20:47)
[2020-05-16] MEDS: ACETAMINOPHEN 500 MG TABLET PO ×5 (00:54→23:38)
[2020-05-16 06:00] VITALS: BP 123/54; PULSE 65; RESP 18; TEMP 36.7; O2SAT 100
[2020-05-16 07:02] LABS: Glucose Point of Care 191 (65-105)
[2020-05-16 09:26] VITALS: PULSE 65
[2020-05-16] MEDS: LOSARTAN POTASSIUM 100 MG TABLET PO (09:26)
[2020-05-16] MEDS: carvediloL 25 MG TABLET PO ×2 (09:26→20:35)
[2020-05-16] MEDS: DOCUSATE SODIUM 100 MG CAPSULE PO ×2 (09:26→20:35)
[2020-05-16] MEDS: ESCITALOPRAM OXALATE 10 MG TABLET PO (09:26)
[2020-05-16] MEDS: LIDOCAINE 5% PATCH 1 PATCH TOPICAL (09:26)
[2020-05-16] MEDS: rOPINIRole HCL 0.25 MG TABLET PO ×3 (09:27→17:21)
[2020-05-16] MEDS: polyethylene glycoL 3350 17 GM POWD.PACK PO (09:27)
[2020-05-16] MEDS: INSULIN ASPART (*BKC) 100 UNITS/ML SUB-Q ×3 (09:54→17:23)
[2020-05-16 12:08] LABS: Glucose Point of Care 161 (65-105)
[2020-05-16 14:00] VITALS: BP 108/53; PULSE 76; RESP 16; TEMP 36.8; O2SAT 98
[2020-05-16 17:25] LABS: Glucose Point of Care 176 (65-105)
[2020-05-16 20:35] VITALS: PULSE 80
[2020-05-16 20:36] LABS: Glucose Point of Care 225 (65-105)
[2020-05-16] MEDS: MELATONIN 3 MG TABLET PO (20:36)
[2020-05-16] MEDS: ENOXAPARIN 30 MG/0.3 ML SYRINGE SUB-Q (20:36)
[2020-05-16] MEDS: INSULIN GLARGINE (*BKC) 100 UNITS/ML 15 UNITS SUB-Q (20:36)
[2020-05-16 22:00] VITALS: BP 134/52; PULSE 80; RESP 18; TEMP 37.1; O2SAT 99
[2020-05-16] MEDS: oxyCODONE HCL (*CRX) 5 MG TAB IR 10 MG PO (22:01)
[2020-05-17] MEDS: oxyCODONE HCL (*CRX) 5 MG TAB IR 10 MG PO ×3 (04:31→20:18)
[2020-05-17] MEDS: ACETAMINOPHEN 500 MG TABLET 1000 MG PO ×3 (05:56→17:04)
[2020-05-17 06:00] VITALS: BP 140/56; PULSE 66; RESP 20; TEMP 36.7; O2SAT 99
[2020-05-17 06:35] LABS: Glucose Point of Care 154 (65-105)
[2020-05-17] MEDS: INSULIN ASPART (*BKC) 100 UNITS/ML SUB-Q ×3 (08:20→16:48)
[2020-05-17] MEDS: rOPINIRole HCL 0.25 MG TABLET PO ×3 (08:21→16:49)
[2020-05-17 08:22] VITALS: PULSE 66
[2020-05-17] MEDS: ESCITALOPRAM OXALATE 10 MG TABLET PO (08:22)
[2020-05-17] MEDS: LIDOCAINE 5% PATCH 1 PATCH TOPICAL (08:22)
[2020-05-17] MEDS: LOSARTAN POTASSIUM 100 MG TABLET PO (08:22)
[2020-05-17] MEDS: carvediloL 25 MG TABLET PO ×2 (08:22→20:20)
[2020-05-17] MEDS: DOCUSATE SODIUM 100 MG CAPSULE PO (08:23)
--- NOTE | 2020-05-17 09:16 | WPDNEURORHBP ---
Subjective Date/time seen: 05/17/20 09:16 seen on [id number] 69 years old admitted to the acute rehab of [facility] with diagnosis of cervical metastatic disease with underlying diabetes mellitus, hypertension, and lumbar stenosis patient has been involved in the physical therapy and occupational therapy has no specific complaints Review of Systems Review of Systems: All systems reviewed & are unremarkable except as noted in HPI and below Functional Status Ambulation Ability Ability to Ambulate 10 Feet: Contact Guard Ability to Ambulate 50 Feet With 2 Turns: Minimum Assistance X 1 Ability to Ambulate 150 Feet: Minimum Assistance X 1 Ambulation Assistive Devices: Walker, Wheeled Exam Narrative: Exam Narrative: he is awake alert cooperative in no obvious acute distress head normocephalic with no cranial bruit ear nose throat examination normal , grigsby regular lungs clear abdomen is soft and neurological examination is unchanged Objective Data Vital Signs Vital Signs: Vital Signs - 24 hr 05/16/20 09:26 05/16/20 14:00 05/16/20 20:35 Temperature 36.8 C Pulse Rate 65 76 80 Respiratory Rate 16 Blood Pressure 108/53 L Pulse Oximetry 98 05/16/20 22:00 05/17/20 06:00 05/17/20 08:22 Temperature 37.1 C 36.7 C Pulse Rate 80 66 66 Respiratory Rate 18 20 Blood Pressure 134/52 L 140/56 L Pulse Oximetry 99 99 Intake/Output Intake/Output: Intake & Output 05/14/20 05/15/20 05/16/20 05/17/20 23:59 23:59 23:59 23:59 Intake Total 600 1320 1560 240 Balance 600 1320 1560 240 Meds/Results Medications: Active Medications Generic Name Dose Route Start Last Admin Trade Name Freq PRN Reason Stop Dose Admin Acetaminophen 1,000 mg 05/17/20 00:50 05/17/20 05:56 Acetaminophen 500 Mg Tablet PO 1,000 mg Q6HR AYESHA Administration Carvedilol 25 mg 05/13/20 21:00 05/17/20 08:22 Carvedilol 25 Mg Tablet PO 25 mg Q12HR AYESHA Administration Cyclobenzaprine HCl 5 mg 05/13/20 17:05 05/16/20 20:47 Cyclobenzaprine Hcl 5 Mg Tablet PO 5 mg TID PRN Administration Muscle Spasm Dextrose 12.5 gm 05/13/20 16:42 Dextrose 50% 25 Gm/50 Ml Syringe IV PUSH PRN PRN Hypoglycemia Protocol Docusate Sodium 100 mg 05/14/20 21:00 05/17/20 08:23 Docusate Sodium 100 Mg Capsule PO 100 mg Q12HR AYESHA Administration Enoxaparin Sodium 30 mg 05/13/20 21:00 05/16/20 20:36 Enoxaparin 30 Mg/0.3 Ml Syringe SUB-Q 30 mg Q24H AYESHA Administration Escitalopram Oxalate 10 mg 05/14/20 09:00 05/17/20 08:22 Escitalopram Oxalate 10 Mg Tablet PO 10 mg DAILY AYESHA Administration Glucagon 1 mg 05/13/20 16:42 Glucagon For Inj 1 Mg Vial IM PRN PRN Hypoglycemia Protocol Glucose 15 gm 05/13/20 16:42 Glucose Oral Gel 15 Gm Of Glucse In 37.5 Gm Tube PO PRN PRN Hypoglycemia Protocol Dextrose 1,000 mls @ 100 mls/hr 05/13/20 16:42 Dextrose 5% 1,000 Ml IVPB PRN PRN Hypoglycemia Protocol Insulin Aspart 4 units 05/13/20 17:00 05/17/20 08:20 Insulin Aspart (*Bkc) 100 Units/Ml SUB-Q 4 units TIDWM AYESHA Administration Insulin Aspart 2 - 5 units 05/13/20 17:00 05/17/20 07:29 Insulin Aspart (*Bkc) 100 Units/Ml SUB-Q Not Given ACINSULIN [facility] Protocol Insulin Glargine 15 units 05/13/20 21:00 05/16/20 20:36 Insulin Glargine (*Bkc) 100 Units/Ml SUB-Q 15 units HS AYESHA Administration Lidocaine 1 patch 05/14/20 09:00 05/17/20 08:22 Lidocaine 5% Patch TOPICAL 1 patch DAILY AYESHA Administration Losartan Potassium 100 mg 05/14/20 09:00 05/17/20 08:22 Losartan Potassium 100 Mg Tablet PO 100 mg DAILY AYESHA Administration Melatonin 3 mg 05/13/20 21:00 05/16/20 20:36 Melatonin 3 Mg Tablet PO 06/12/20 21:01 3 mg HS AYESHA Administration Oxycodone HCl 10 mg 05/13/20 17:05 05/17/20 04:31 Oxycodone Hcl (*Crx) 5 Mg Tab Ir PO 10 mg Q4H PRN Administration Pain (Scale Sc
--- NOTE | 2020-05-17 09:46 | WPDNEURORHBP ---
Subjective Date/time seen: 05/17/20 09:46 69 years old with cervical spine metastatic disease and stenosis involving the physical therapy does have multiple comorbid conditions particularly diabetes mellitus and hypertension no recent lab Review of Systems Review of Systems: All systems reviewed & are unremarkable except as noted in HPI and below Functional Status Ambulation Ability Ability to Ambulate 10 Feet: Contact Guard Ability to Ambulate 50 Feet With 2 Turns: Minimum Assistance X 1 Ability to Ambulate 150 Feet: Minimum Assistance X 1 Ambulation Assistive Devices: Walker, Wheeled Exam Narrative: Exam Narrative: on examination awake alert his speech nor dysphasic not dysarthric heart regular lungs clear neuro unchanged and there is no signs of acute infection no rhinorrhea no cough Objective Data Vital Signs Vital Signs: Vital Signs - 24 hr 05/16/20 14:00 05/16/20 20:35 05/16/20 22:00 Temperature 36.8 C 37.1 C Pulse Rate 76 80 80 Respiratory Rate 16 18 Blood Pressure 108/53 L 134/52 L Pulse Oximetry 98 99 05/17/20 06:00 05/17/20 08:22 Temperature 36.7 C Pulse Rate 66 66 Respiratory Rate 20 Blood Pressure 140/56 L Pulse Oximetry 99 Intake/Output Intake/Output: Intake & Output 05/14/20 05/15/20 05/16/20 05/17/20 23:59 23:59 23:59 23:59 Intake Total 600 1320 1560 240 Balance 600 1320 1560 240 Meds/Results Medications: Active Medications Generic Name Dose Route Start Last Admin Trade Name Freq PRN Reason Stop Dose Admin Acetaminophen 1,000 mg 05/17/20 00:50 05/17/20 05:56 Acetaminophen 500 Mg Tablet PO 1,000 mg Q6HR AYESHA Administration Carvedilol 25 mg 05/13/20 21:00 05/17/20 08:22 Carvedilol 25 Mg Tablet PO 25 mg Q12HR AYESHA Administration Cyclobenzaprine HCl 5 mg 05/13/20 17:05 05/16/20 20:47 Cyclobenzaprine Hcl 5 Mg Tablet PO 5 mg TID PRN Administration Muscle Spasm Dextrose 12.5 gm 05/13/20 16:42 Dextrose 50% 25 Gm/50 Ml Syringe IV PUSH PRN PRN Hypoglycemia Protocol Docusate Sodium 100 mg 05/14/20 21:00 05/17/20 08:23 Docusate Sodium 100 Mg Capsule PO 100 mg Q12HR AYESHA Administration Enoxaparin Sodium 30 mg 05/13/20 21:00 05/16/20 20:36 Enoxaparin 30 Mg/0.3 Ml Syringe SUB-Q 30 mg Q24H AYESHA Administration Escitalopram Oxalate 10 mg 05/14/20 09:00 05/17/20 08:22 Escitalopram Oxalate 10 Mg Tablet PO 10 mg DAILY AYESHA Administration Glucagon 1 mg 05/13/20 16:42 Glucagon For Inj 1 Mg Vial IM PRN PRN Hypoglycemia Protocol Glucose 15 gm 05/13/20 16:42 Glucose Oral Gel 15 Gm Of Glucse In 37.5 Gm Tube PO PRN PRN Hypoglycemia Protocol Dextrose 1,000 mls @ 100 mls/hr 05/13/20 16:42 Dextrose 5% 1,000 Ml IVPB PRN PRN Hypoglycemia Protocol Insulin Aspart 4 units 05/13/20 17:00 05/17/20 08:20 Insulin Aspart (*Bkc) 100 Units/Ml SUB-Q 4 units TIDWM AYESHA Administration Insulin Aspart 2 - 5 units 05/13/20 17:00 05/17/20 07:29 Insulin Aspart (*Bkc) 100 Units/Ml SUB-Q Not Given ACINSULIN AYESHA Protocol Insulin Glargine 15 units 05/13/20 21:00 05/16/20 20:36 Insulin Glargine (*Bkc) 100 Units/Ml SUB-Q 15 units HS AYESHA Administration Lidocaine 1 patch 05/14/20 09:00 05/17/20 08:22 Lidocaine 5% Patch TOPICAL 1 patch DAILY AYESHA Administration Losartan Potassium 100 mg 05/14/20 09:00 05/17/20 08:22 Losartan Potassium 100 Mg Tablet PO 100 mg DAILY AYESHA Administration Melatonin 3 mg 05/13/20 21:00 05/16/20 20:36 Melatonin 3 Mg Tablet PO 06/12/20 21:01 3 mg HS AYESHA Administration Oxycodone HCl 10 mg 05/13/20 17:05 05/17/20 04:31 Oxycodone Hcl (*Crx) 5 Mg Tab Ir PO 10 mg Q4H PRN Administration Pain (Scale Score 4-6) Polyethylene Glycol 17 gm 05/14/20 09:00 05/17/20 08:26 Polyethylene Glycol 3350 17 Gm Powd.Pack PO Not Given DAILY AYESHA Ropinirole HCl 0.25 m
[2020-05-17 12:17] LABS: Glucose Point of Care 192 (65-105)
[2020-05-17 14:00] VITALS: BP 106/64; PULSE 61; RESP 14; TEMP 36.5; O2SAT 100
[2020-05-17 17:09] LABS: Glucose Point of Care 190 (65-105)
[2020-05-17 20:20] VITALS: PULSE 78
[2020-05-17] MEDS: MELATONIN 3 MG TABLET PO (20:20)
[2020-05-17] MEDS: INSULIN GLARGINE (*BKC) 100 UNITS/ML 15 UNITS SUB-Q (20:20)
[2020-05-17] MEDS: ENOXAPARIN 30 MG/0.3 ML SYRINGE SUB-Q (20:21)
[2020-05-17 20:31] LABS: Glucose Point of Care 215 (65-105)
[2020-05-17 22:00] VITALS: BP 158/62; PULSE 78; RESP 18; TEMP 36.5; O2SAT 98
[2020-05-18] MEDS: oxyCODONE HCL (*CRX) 5 MG TAB IR 10 MG PO ×3 (03:18→17:02)
[2020-05-18 06:00] VITALS: BP 146/61; PULSE 68; RESP 18; TEMP 36.1; O2SAT 97
[2020-05-18 06:54] LABS: Glucose Point of Care 199 (65-105)
[2020-05-18] MEDS: ACETAMINOPHEN 500 MG TABLET 1000 MG PO ×5 (06:57→23:16)
[2020-05-18] MEDS: INSULIN ASPART (*BKC) 100 UNITS/ML SUB-Q ×4 (07:50→17:11)
--- NOTE | 2020-05-18 09:23 | WPDNEURORHBP ---
Subjective Date/time seen: 05/18/20 09:23 69 years old with cervical spine metastatic disease along the cervical stenosis has been involved in a physical therapy and occupational therapy as per the physical therapy he is doing well he will require a walker in addition he will be restarted on Eliquis as has been discussed in the admission notes as per the instruction of his last model maker Dr. Garza incision is healthy minimal drainage no signs of infection at the time of discharge he will require the home health with nursing visit Review of Systems Review of Systems: All systems reviewed & are unremarkable except as noted in HPI and below Functional Status Ambulation Ability Ability to Ambulate 10 Feet: Contact Guard Ability to Ambulate 50 Feet With 2 Turns: Minimum Assistance X 1 Ability to Ambulate 150 Feet: Minimum Assistance X 1 Ambulation Assistive Devices: Walker, Wheeled Transfers Ability Ability to Transfer In/Out of Chair: Minimum Assistance X 1 Exam Narrative: Exam Narrative: on examination he is awake alert cooperative, his speech not dysphasic not dysarthric, heart regular ,lungs clear with no crepitations ,abdomen is soft with normal bowel sounds nontender, neuro examination revealed him to be awake alert cooperative, Pupils round regular, vision full ,extraocular muscle full, face symmetrical tongue midline ,motor examination revealed no drift , reflexes are symmetrical plantars are downgoing Objective Data Vital Signs Vital Signs: Vital Signs - 24 hr 05/17/20 14:00 05/17/20 20:20 05/17/20 22:00 Temperature 36.5 C 36.5 C Pulse Rate 61 78 78 Respiratory Rate 14 18 Blood Pressure 106/64 158/62 H Pulse Oximetry 100 98 05/18/20 06:00 Temperature 36.1 C L Pulse Rate 68 Respiratory Rate 18 Blood Pressure 146/61 H Pulse Oximetry 97 Intake/Output Intake/Output: Intake & Output 05/15/20 05/16/20 05/17/20 05/18/20 23:59 23:59 23:59 23:59 Intake Total 1320 1560 720 240 Balance 1320 1560 720 240 Meds/Results Medications: Active Medications Generic Name Dose Route Start Last Admin Trade Name Freq PRN Reason Stop Dose Admin Acetaminophen 1,000 mg 05/17/20 00:50 05/18/20 06:57 Acetaminophen 500 Mg Tablet PO 1,000 mg Q6HR AYESHA Administration Carvedilol 25 mg 05/13/20 21:00 05/17/20 20:20 Carvedilol 25 Mg Tablet PO 25 mg Q12HR AYESHA Administration Cyclobenzaprine HCl 5 mg 05/13/20 17:05 05/16/20 20:47 Cyclobenzaprine Hcl 5 Mg Tablet PO 5 mg TID PRN Administration Muscle Spasm Dextrose 12.5 gm 05/13/20 16:42 Dextrose 50% 25 Gm/50 Ml Syringe IV PUSH PRN PRN Hypoglycemia Protocol Docusate Sodium 100 mg 05/14/20 21:00 05/17/20 20:20 Docusate Sodium 100 Mg Capsule PO Not Given Q12HR AYESHA Enoxaparin Sodium 30 mg 05/13/20 21:00 05/17/20 20:21 Enoxaparin 30 Mg/0.3 Ml Syringe SUB-Q 30 mg Q24H AYESHA Administration Escitalopram Oxalate 10 mg 05/14/20 09:00 05/17/20 08:22 Escitalopram Oxalate 10 Mg Tablet PO 10 mg DAILY AYESHA Administration Glucagon 1 mg 05/13/20 16:42 Glucagon For Inj 1 Mg Vial IM PRN PRN Hypoglycemia Protocol Glucose 15 gm 05/13/20 16:42 Glucose Oral Gel 15 Gm Of Glucse In 37.5 Gm Tube PO PRN PRN Hypoglycemia Protocol Dextrose 1,000 mls @ 100 mls/hr 05/13/20 16:42 Dextrose 5% 1,000 Ml IVPB PRN PRN Hypoglycemia Protocol Insulin Aspart 4 units 05/13/20 17:00 05/18/20 07:50 Insulin Aspart (*Bkc) 100 Units/Ml SUB-Q 4 units TIDWM AYESHA Administration Insulin Aspart 2 - 5 units 05/13/20 17:00 05/18/20 07:50 Insulin Aspart (*Bkc) 100 Units/Ml SUB-Q Not Given ACINSULIN [facility] Protocol Insulin Glargine 15 units 05/13/20 21:00 05/17/20 20:20 Insulin Glargine (*Bkc) 100 Units/Ml SUB-Q 15 units HS AYESHA Administration Lidocaine 1 patch 05/14/20 09:00 05/17/20 08:22 Lidocaine 5% Patch TOPICAL 1 patch DAILY S
[2020-05-18] MEDS: ESCITALOPRAM OXALATE 10 MG TABLET PO (09:51)
[2020-05-18] MEDS: LIDOCAINE 5% PATCH 1 PATCH TOPICAL (09:51)
[2020-05-18 09:52] VITALS: PULSE 68
[2020-05-18] MEDS: carvediloL 25 MG TABLET PO ×2 (09:52→21:11)
[2020-05-18] MEDS: rOPINIRole HCL 0.25 MG TABLET PO ×3 (09:52→11:57)
[2020-05-18] MEDS: LOSARTAN POTASSIUM 100 MG TABLET PO (09:52)
[2020-05-18] MEDS: DOCUSATE SODIUM 100 MG CAPSULE PO ×2 (09:55→21:11)
[2020-05-18 11:49] LABS: Glucose Point of Care 186 (65-105)
[2020-05-18 14:00] VITALS: BP 111/54; PULSE 74; RESP 20; TEMP 36.6; O2SAT 100
[2020-05-18 16:58] LABS: Glucose Point of Care 213 (65-105)
[2020-05-18 21:11] VITALS: PULSE 76
[2020-05-18 21:12] LABS: Glucose Point of Care 219 (65-105)
[2020-05-18] MEDS: INSULIN GLARGINE (*BKC) 100 UNITS/ML 15 UNITS SUB-Q (21:12)
[2020-05-18] MEDS: MELATONIN 3 MG TABLET PO (21:12)
[2020-05-18 22:00] VITALS: BP 131/63; PULSE 75; RESP 18; TEMP 36.5; O2SAT 99
[2020-05-19] MEDS: oxyCODONE HCL (*CRX) 5 MG TAB IR 10 MG PO ×3 (02:48→16:42)
[2020-05-19 06:00] VITALS: BP 143/65; PULSE 65; RESP 12; TEMP 36.2; O2SAT 100
[2020-05-19] MEDS: ACETAMINOPHEN 500 MG TABLET 1000 MG PO ×3 (06:02→17:50)
[2020-05-19 06:45] LABS: Glucose Point of Care 177 (65-105)
[2020-05-19 08:00] VITALS: PULSE 65; RESP 12; O2SAT 100
[2020-05-19 08:30] VITALS: PULSE 65
[2020-05-19] MEDS: DOCUSATE SODIUM 100 MG CAPSULE PO (08:30)
[2020-05-19] MEDS: carvediloL 25 MG TABLET PO ×2 (08:30→21:09)
[2020-05-19] MEDS: LOSARTAN POTASSIUM 100 MG TABLET PO (08:30)
[2020-05-19] MEDS: ESCITALOPRAM OXALATE 10 MG TABLET PO (08:30)
[2020-05-19] MEDS: rOPINIRole HCL 0.25 MG TABLET PO ×3 (08:31→16:42)
[2020-05-19] MEDS: LIDOCAINE 5% PATCH 1 PATCH TOPICAL (08:31)
[2020-05-19] MEDS: INSULIN ASPART (*BKC) 100 UNITS/ML SUB-Q ×4 (08:35→16:55)
[2020-05-19 12:05] LABS: Glucose Point of Care 224 (65-105)
--- NOTE | 2020-05-19 13:18 | PCDIET ---
Nutrition Follow-Up Complete: Nutrition Diagnosis: Increased nutrition needs related to cancer as evidenced by weight loss of 39 pounds and daily protein needs of 99grams. Nutrition Goal: Intake of 75-100% of all meals, three times a day minimum to maintain wt Goal met. Patient consuming 100% of most meals on diabetic diet. No c/o or concerns at this time. Last recorded weight is 82.3 kg. Recommend obtaining new weight. Bowel Motility: Last documented BM on 05/17/20. Labs Reviewed: Glu (177) Meds Noted: Coreg, Colace, Novolog, Lantus, Cozaar, Roxicodone, Senokot Additional Notes: Neck incision with dressing. No documented pressure sores. Will continue to monitor with same goal. Nutrition Monitoring and Evaluation: Follow up every 7 days.
[2020-05-19 14:00] VITALS: BP 103/50; PULSE 72; RESP 18; TEMP 36.8; O2SAT 99
[2020-05-19 16:53] LABS: Glucose Point of Care 176 (65-105)
[2020-05-19 21:09] VITALS: PULSE 80
[2020-05-19] MEDS: APIXABAN 5 MG TABLET PO (21:09)
[2020-05-19] MEDS: MELATONIN 3 MG TABLET PO (21:09)
[2020-05-19] MEDS: INSULIN GLARGINE (*BKC) 100 UNITS/ML 15 UNITS SUB-Q (21:18)
[2020-05-19 22:00] VITALS: BP 168/78; PULSE 80; RESP 18; TEMP 36.6; O2SAT 99
[2020-05-19 22:29] LABS: Glucose Point of Care 221 (65-105)
[2020-05-20] MEDS: ACETAMINOPHEN 500 MG TABLET 1000 MG PO ×4 (01:21→17:11)
[2020-05-20] MEDS: oxyCODONE HCL (*CRX) 5 MG TAB IR 10 MG PO ×4 (01:21→21:49)
[2020-05-20 06:00] VITALS: BP 124/62; PULSE 66; RESP 20; TEMP 36.4; O2SAT 100
[2020-05-20 06:46] LABS: Glucose Point of Care 167 (65-105)
[2020-05-20] MEDS: CYCLOBENZAPRINE HCL 5 MG TABLET PO (07:48)
[2020-05-20] MEDS: APIXABAN 5 MG TABLET PO ×2 (07:49→20:49)
[2020-05-20 07:50] VITALS: PULSE 66
[2020-05-20] MEDS: ESCITALOPRAM OXALATE 10 MG TABLET PO (07:50)
[2020-05-20] MEDS: carvediloL 25 MG TABLET PO ×2 (07:50→20:50)
[2020-05-20] MEDS: LOSARTAN POTASSIUM 100 MG TABLET PO (07:51)
[2020-05-20] MEDS: LIDOCAINE 5% PATCH 1 PATCH TOPICAL (07:51)
[2020-05-20] MEDS: rOPINIRole HCL 0.25 MG TABLET PO ×3 (07:51→17:11)
[2020-05-20] MEDS: INSULIN ASPART (*BKC) 100 UNITS/ML SUB-Q ×3 (07:55→17:10)
[2020-05-20 11:54] LABS: Glucose Point of Care 191 (65-105)
[2020-05-20 14:00] VITALS: BP 113/57; PULSE 76; RESP 20; TEMP 36.9; O2SAT 98
--- NOTE | 2020-05-20 15:23 | WPDPN ---
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: Code(s): C79.51 - Secondary malignant neoplasm of bone; C80.1 - Malignant (primary) neoplasm, unspecified Status: Acute (2) Cervical radiculopathy at C7: Code(s): M54.12 - Radiculopathy, cervical region Status: Acute (3) Hyperkalemia: Code(s): E87.5 - Hyperkalemia Status: Acute (4) Anemia, unspecified: Code(s): D64.9 - Anemia, unspecified Status: Acute (5) Insulin resistance: Code(s): E88.81 - Metabolic syndrome Status: Acute (6) Atrial fibrillation: Qualifiers: Atrial fibrillation type: unspecified Qualified Code(s): I48.91 - Unspecified atrial fibrillation Code(s): I48.91 - Unspecified atrial fibrillation Status: Acute (7) Critical illness neuropathy: Code(s): G62.81 - Critical illness polyneuropathy Status: Acute (8) History of respiratory failure: Code(s): Z87.09 - Personal history of other diseases of the respiratory system Status: Acute (9) Critical illness myopathy: Code(s): G72.81 - Critical illness myopathy Status: Acute (10) Mixed hyperlipidemia: Code(s): E78.2 - Mixed hyperlipidemia Status: Acute (11) Other obesity: Code(s): E66.8 - Other obesity Status: Acute (12) Polyp of colon: Qualifiers: Colon polyp type: unspecified Colon location: unspecified part of colon Qualified Code(s): K63.5 - Polyp of colon Code(s): K63.5 - Polyp of colon Status: Acute (13) Psoriasis: Code(s): L40.9 - Psoriasis, unspecified Status: Acute (14) Type 2 diabetes mellitus with hyperglycemia: Qualifiers: Diabetes mellitus mcc insulin use: without mcc use Qualified Code(s): E11.65 - Type 2 diabetes mellitus with hyperglycemia Code(s): E11.65 - Type 2 diabetes mellitus with hyperglycemia Status: Acute (15) Benign essential hypertension: Code(s): I10 - Essential (primary) hypertension Status: Acute Additional Plan stable continue the therapy as such Review of Systems Review of Systems: All systems reviewed & are unremarkable except as noted in HPI and below Exam Narrative: Exam Narrative: exam awake alert cooperative speech normal heart regular lungs clear abdomen is soft neuro examination unchanged Objective Data Vital Signs Vital Signs: Vital Signs - 24 hr 05/19/20 21:09 05/19/20 22:00 05/20/20 06:00 Temperature 36.6 C 36.4 C L Pulse Rate 80 80 66 Respiratory Rate 18 20 Blood Pressure 168/78 H 124/62 Pulse Oximetry 99 100 05/20/20 07:50 05/20/20 14:00 Temperature 36.9 C Pulse Rate 66 76 Respiratory Rate 20 Blood Pressure 113/57 L Pulse Oximetry 98 Intake/Output Intake/Output: Intake & Output 05/17/20 05/18/20 05/19/20 05/20/20 23:59 23:59 23:59 23:59 Intake Total 720 720 720 480 Balance 720 720 720 480 Meds/Results Medications: Active Medications Generic Name Dose Route Start Last Admin Trade Name Freq PRN Reason Stop Dose Admin Acetaminophen 1,000 mg 05/17/20 00:50 05/20/20 12:27 Acetaminophen 500 Mg Tablet PO 1,000 mg Q6HR AYESHA Administration Apixaban 5 mg 05/19/20 21:00 05/20/20 07:49 Apixaban 5 Mg Tablet PO 5 mg Q12HR AYESHA Administration Carvedilol 25 mg 05/13/20 21:00 05/20/20 07:50 Carvedilol 25 Mg Tablet PO 25 mg Q12HR AYESHA Administration Cyclobenzaprine HCl 5 mg 05/13/20 17:05 05/20/20 07:48 Cyclobenzaprine Hcl 5 Mg Tablet PO 5 mg TID PRN Administration Muscle Spasm Dextrose 12.5 gm 05/13/20 16:42 Dextrose 50% 25 Gm/50 Ml Syringe IV PUSH PRN PRN Hypoglycemia Protocol Docusate Sodium 100 mg 05/14/20 21:00 05/20/20 07:50 Docusate Sodium 100 Mg Capsule PO Not Given Q12HR AYESHA Escitalopram Oxalate 10 mg 05/14/20 09:00 05/20/20 07:50
[2020-05-20 16:51] LABS: Glucose Point of Care 158 (65-105)
[2020-05-20 20:50] VITALS: PULSE 66
[2020-05-20] MEDS: DOCUSATE SODIUM 100 MG CAPSULE PO (20:50)
[2020-05-20] MEDS: MELATONIN 3 MG TABLET PO (20:50)
[2020-05-20] MEDS: INSULIN GLARGINE (*BKC) 100 UNITS/ML 15 UNITS SUB-Q (20:53)
[2020-05-20 21:53] LABS: Glucose Point of Care 213 (65-105)
[2020-05-20 22:00] VITALS: BP 150/71; PULSE 74; RESP 18; TEMP 36.8; O2SAT 97
[2020-05-21] MEDS: ACETAMINOPHEN 500 MG TABLET 1000 MG PO ×4 (01:03→17:03)
[2020-05-21] MEDS: oxyCODONE HCL (*CRX) 5 MG TAB IR 10 MG PO ×4 (04:19→22:03)
[2020-05-21 04:55] LABS: Basophils Absolute Auto 0.1 K/mm3 (0.0-0.1); Basophils Percent Auto 0.5 % (0.2-1.2); Eosinophils Absolute Auto 0.3 K/mm3 (0-0.3); Eosinophils Percent Auto 3.3 % (0-4.4); Hemoglobin 7.7 g/dL (14.0-18.0); Immature Granulocyte Absolute 0.12 K/mm3 (0.00-0.031); Immature Granulocyte Percent A 1.3 % (0-0.5); Lymphocytes Absolute Auto 1.84 K/mm3 (0.9-3.2); Mean Corpuscular HGB Conc 33.5 g/dl (32-36); Mean Corpuscular Hemoglobin 29.2 pg (26-34); Mean Corpuscular Volume 87.1 fl (80-100); Mean Platelet Volume 9.7 fl (7.4-10.4); Monocytes Absolute Auto 0.9 K/mm3 (0.1-0.6); Monocytes Percent Auto 9.7 % (2.6-8.5); Neutrophils Percent Auto 65.2 % (45.5-73.1); Platelet Count Result 381 k/mm3 (150-375); Red Blood Count 2.64 M/mm3 (4.6-6.20); White Blood Count 9.2 K/mm3 (4.5-10.0)
[2020-05-21 05:09] LABS: Anion Gap 5 mmol/L (8-16); Blood Urea Nitrogen 27 mg/dL (9-20); Calcium 9.7 mg/dL (8.4-10.2); Carbon Dioxide 32 mmol/L (22-30); Chloride 97 mmol/L (98-107); Estimated CRCL calculation 55 ml/min; Estimated Glomerular Filt Rate 60; Glucose 177 mg/dL (75-110); Potassium 4.1 mmol/L (3.4-5.0); Sodium 134 mmol/L (137-145)
[2020-05-21 06:00] VITALS: BP 130/65; PULSE 68; RESP 18; TEMP 36.4; O2SAT 99
[2020-05-21 06:56] LABS: Glucose Point of Care 166 (65-105)
[2020-05-21] MEDS: INSULIN ASPART (*BKC) 100 UNITS/ML SUB-Q ×5 (07:47→16:49)
[2020-05-21 09:03] VITALS: PULSE 68
[2020-05-21] MEDS: LOSARTAN POTASSIUM 100 MG TABLET PO (09:03)
[2020-05-21] MEDS: rOPINIRole HCL 0.25 MG TABLET PO ×3 (09:03→16:52)
[2020-05-21] MEDS: carvediloL 25 MG TABLET PO ×2 (09:03→22:09)
[2020-05-21] MEDS: APIXABAN 5 MG TABLET PO ×2 (09:03→22:09)
[2020-05-21] MEDS: ESCITALOPRAM OXALATE 10 MG TABLET PO (09:03)
[2020-05-21] MEDS: LIDOCAINE 5% PATCH 1 PATCH TOPICAL (09:03)
[2020-05-21] MEDS: DOCUSATE SODIUM 100 MG CAPSULE PO ×2 (09:04→22:10)
[2020-05-21 11:37] LABS: Glucose Point of Care 205 (65-105)
[2020-05-21 14:00] VITALS: BP 122/61; PULSE 80; RESP 20; TEMP 36.4; O2SAT 100
--- NOTE | 2020-05-21 14:06 | PC.NURSE ---
Spoke with Dr Garza's nurse Katelyn regarding patient's eliquis medication and digoxin. Katelyn stated that Dr Garza has reveiewed hospital information and recommended that eliquis be held as well as digoxin until next year. Katelyn stated they would be scheduling an appointment with the patient to follow up in june and they will discuss when to restart those. Dr Gomez updated and eliquis has been discontinued at this time. will continue to monitor.
--- NOTE | 2020-05-21 14:17 | PC.NURSE ---
Dr Garza's nurse Katelyn called back and stated that Dr Garza would like the eliquis to continue since we had already restarted it today and pt had received a dose. Dr Gomez updated . pt will discharge home on eliquis. will continue to monitor.
[2020-05-21 16:29] LABS: Glucose Point of Care 219 (65-105)
[2020-05-21 22:07] VITALS: BP 150/62; PULSE 77; RESP 16; TEMP 36.7; O2SAT 99
[2020-05-21 22:09] VITALS: PULSE 77
[2020-05-21] MEDS: MELATONIN 3 MG TABLET PO (22:10)
[2020-05-21] MEDS: INSULIN GLARGINE (*BKC) 100 UNITS/ML 15 UNITS SUB-Q (22:20)
[2020-05-21 22:58] LABS: Glucose Point of Care 230 (65-105)
[2020-05-22] MEDS: ACETAMINOPHEN 500 MG TABLET 1000 MG PO ×4 (00:01→18:16)
[2020-05-22 05:59] VITALS: BP 145/63; PULSE 72; RESP 16; TEMP 36.2; O2SAT 100
[2020-05-22] MEDS: oxyCODONE HCL (*CRX) 5 MG TAB IR 10 MG PO ×2 (06:44→18:16)
[2020-05-22 06:51] LABS: Glucose Point of Care 169 (65-105)
[2020-05-22] MEDS: INSULIN ASPART (*BKC) 100 UNITS/ML SUB-Q ×4 (09:09→18:16)
[2020-05-22] MEDS: LIDOCAINE 5% PATCH 1 PATCH TOPICAL (09:09)
[2020-05-22 09:10] VITALS: PULSE 72
[2020-05-22] MEDS: LOSARTAN POTASSIUM 100 MG TABLET PO (09:10)
[2020-05-22] MEDS: APIXABAN 5 MG TABLET PO ×2 (09:10→21:15)
[2020-05-22] MEDS: carvediloL 25 MG TABLET PO ×2 (09:10→21:16)
[2020-05-22] MEDS: ESCITALOPRAM OXALATE 10 MG TABLET PO (09:10)
[2020-05-22] MEDS: rOPINIRole HCL 0.25 MG TABLET PO ×3 (09:11→18:17)
[2020-05-22] MEDS: DOCUSATE SODIUM 100 MG CAPSULE PO ×2 (09:11→21:16)
[2020-05-22] MEDS: CYCLOBENZAPRINE HCL 5 MG TABLET PO ×2 (09:18→18:17)
[2020-05-22 11:39] LABS: Glucose Point of Care 210 (65-105)
--- NOTE | 2020-05-22 12:25 | WPDNEUROPN ---
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: Code(s): C79.51 - Secondary malignant neoplasm of bone; C80.1 - Malignant (primary) neoplasm, unspecified Status: Acute (2) Cervical radiculopathy at C7: Code(s): M54.12 - Radiculopathy, cervical region Status: Acute (3) Hyperkalemia: Code(s): E87.5 - Hyperkalemia Status: Acute (4) Anemia, unspecified: Code(s): D64.9 - Anemia, unspecified Status: Acute (5) Insulin resistance: Code(s): E88.81 - Metabolic syndrome Status: Acute (6) Atrial fibrillation: Qualifiers: Atrial fibrillation type: unspecified Qualified Code(s): I48.91 - Unspecified atrial fibrillation Code(s): I48.91 - Unspecified atrial fibrillation Status: Acute (7) Critical illness neuropathy: Code(s): G62.81 - Critical illness polyneuropathy Status: Acute (8) History of respiratory failure: Code(s): Z87.09 - Personal history of other diseases of the respiratory system Status: Acute (9) Critical illness myopathy: Code(s): G72.81 - Critical illness myopathy Status: Acute (10) Mixed hyperlipidemia: Code(s): E78.2 - Mixed hyperlipidemia Status: Acute (11) Other obesity: Code(s): E66.8 - Other obesity Status: Acute (12) Polyp of colon: Qualifiers: Colon polyp type: unspecified Colon location: unspecified part of colon Qualified Code(s): K63.5 - Polyp of colon Code(s): K63.5 - Polyp of colon Status: Acute (13) Psoriasis: Code(s): L40.9 - Psoriasis, unspecified Status: Acute (14) Type 2 diabetes mellitus with hyperglycemia: Qualifiers: Diabetes mellitus nursing home insulin use: without nursing home use Qualified Code(s): E11.65 - Type 2 diabetes mellitus with hyperglycemia Code(s): E11.65 - Type 2 diabetes mellitus with hyperglycemia Status: Acute (15) Benign essential hypertension: Code(s): I10 - Essential (primary) hypertension Status: Acute (16) Drainage from surgical wound: Status: Acute Additional Plan is looking forward to be discharged tomorrow,all the medications have been rechecked, has been started on Keflex and will inform the surgeon as well Review of Systems Review of Systems: All systems reviewed & are unremarkable except as noted in HPI and below Exam Narrative: Exam Narrative: posterior upper neck incision has lumpy feeling with serosanguineous drainage, culture will be sent ,the surgeon will be informed ,will start on Keflex, as far as the other examination is concerned his speech nor dysphasic not dysarthric; follows instructions very well, remains afebrile, pupils round regular,vision full extraocular movements are full,face symmetrical ,tongue midline ,motor examination revealed him to have no drift of 1 side or other side, generally muscle mass is low particularly the small muscles of the hand are atrophied that is static and old problem Objective Data Vital Signs Vital Signs: Vital Signs - 24 hr 05/21/20 14:00 05/21/20 22:07 05/21/20 22:09 Temperature 36.4 C L 36.7 C Pulse Rate 80 77 77 Respiratory Rate 20 16 Blood Pressure 122/61 150/62 H Pulse Oximetry 100 99 05/22/20 05:59 05/22/20 09:10 Temperature 36.2 C L Pulse Rate 72 72 Respiratory Rate 16 Blood Pressure 145/63 H Pulse Oximetry 100 Intake/Output Intake/Output: Intake & Output 05/19/20 05/20/20 05/21/20 05/22/20 23:59 23:59 23:59 23:59 Intake Total 720 720 720 240 Balance 720 720 720 240 Meds/Results Medications: Active Medications Generic Name Dose Route Start Last Admin Trade Name Luz PRN Reason Stop Dose Admin Acetaminophen 1,000 mg 05/17/20 00:50 05/22/20 06:00 Acetaminophen 500 Mg Tablet PO 1,000 mg Q6HR AYESHA Administration Apixaban 5 mg 05/21/20 21:00 05/22/20 09:10 Api
[2020-05-22] MEDS: CEPHALEXIN 500 MG CAPSULE PO (13:53)
[2020-05-22 14:00] VITALS: BP 115/59; PULSE 80; RESP 18; TEMP 36.2; O2SAT 100
[2020-05-22 14:33] LABS: Basophils Absolute Auto 0.1 K/mm3 (0.0-0.1); Basophils Percent Auto 0.5 % (0.2-1.2); Eosinophils Absolute Auto 0.3 K/mm3 (0-0.3); Eosinophils Percent Auto 2.3 % (0-4.4); Hematocrit 24.3 % (42.0-52.0); Immature Granulocyte Absolute 0.13 K/mm3 (0.00-0.031); Immature Granulocyte Percent A 1.2 % (0-0.5); Lymphocytes Absolute Auto 1.38 K/mm3 (0.9-3.2); Lymphocytes Percent Auto 12.3 % (18.3-44.2); Mean Corpuscular HGB Conc 32.9 g/dl (32-36); Mean Corpuscular Hemoglobin 29.2 pg (26-34); Mean Corpuscular Volume 88.7 fl (80-100); Mean Platelet Volume 9.7 fl (7.4-10.4); Monocytes Absolute Auto 0.9 K/mm3 (0.1-0.6); Monocytes Percent Auto 8.3 % (2.6-8.5); Neutrophils Absolute Auto 8.5 K/mm3 (1.3-6.7); Neutrophils Percent Auto 75.4 % (45.5-73.1); Platelet Count Result 410 k/mm3 (150-375); Red Blood Count 2.74 M/mm3 (4.6-6.20); Red Cell Distribution Width 15.1 % (11.5-14.5); White Blood Count 11.2 K/mm3 (4.5-10.0)
[2020-05-22 16:43] LABS: Glucose Point of Care 184 (65-105)
[2020-05-22 19:44] VITALS: BP 138/72; PULSE 85; RESP 18; TEMP 36.8; O2SAT 100
--- NOTE | 2020-05-22 20:16 | PC.NURSE ---
Addendum entered by Magno Gill RN 05/22/20 20:43: Dr. Canales may want patient to go to hospital if any worsening symptoms tomorrow (05/23) and is aware of his discharge plans. Original Note: Late entry from 1130am: Pt bathing with therapy, so changed dressing during and noted a approx dime sized area to dressing; when removed noted a quarter sized raised area (approx. .6cm) with redness and .1 cm pustule like area in center. Applied clean dressing. Approx. 1pm Dr. Gomez and I assessed site and noted coverlet dressing was saturated with s/s fluid. Instructed by Dr. Gomez to get hold of surgeon if possible and get direction from them, but would start on Keflex 500mg BID x7days for now. called to see if the office had called to have us do a xray/c-spine of which we did not. She also gave me the number for the surgeons. Dr. Gomez OK's xray, which appeared negative. Spoke With Dr. 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 Nelson). After speaking to him, he asked for me to get a CBC and then call back with results. Patient has been afebrile and no c/o of unusual pain, but some itching at site. CBC obtained and was slightly elevated at 11.[address] Canales was notified and felt it was not far from what he was just prior to coming to us and to monitor, but would contact Dr. Nelson as well and get back with me Dr. Canales called back, stated to monitor throughout the night for any changes and or improvements and give him a call tomorrow if worsening, but believe he will call as well to check on him. Noted dressing was saturated at 6pm and went in with oncoming nurse Deidra to inspect site and change dressing with much improvement noted. Area of redness was improved and swelling had gone down. She will monitor throughout the night.
[2020-05-22 21:16] VITALS: PULSE 78
[2020-05-22] MEDS: MELATONIN 3 MG TABLET PO (21:16)
[2020-05-22] MEDS: INSULIN GLARGINE (*BKC) 100 UNITS/ML 15 UNITS SUB-Q (21:22)
[2020-05-22 22:26] LABS: Glucose Point of Care 230 (65-105)
[2020-05-23] MEDS: ACETAMINOPHEN 500 MG TABLET 1000 MG PO ×4 (00:11→17:31)
[2020-05-23] MEDS: CEPHALEXIN 500 MG CAPSULE PO ×3 (00:11→21:00)
[2020-05-23 06:00] VITALS: BP 120/55; PULSE 72; RESP 18; TEMP 36.4; O2SAT 100
[2020-05-23] MEDS: oxyCODONE HCL (*CRX) 5 MG TAB IR 10 MG PO ×4 (06:30→21:02)
[2020-05-23 06:38] LABS: Glucose Point of Care 166 (65-105)
[2020-05-23] MEDS: ESCITALOPRAM OXALATE 10 MG TABLET PO (09:11)
[2020-05-23] MEDS: LOSARTAN POTASSIUM 100 MG TABLET PO (09:11)
[2020-05-23] MEDS: LIDOCAINE 5% PATCH 1 PATCH TOPICAL (09:11)
[2020-05-23] MEDS: rOPINIRole HCL 0.25 MG TABLET PO ×3 (09:11→17:30)
[2020-05-23 09:12] VITALS: PULSE 72
[2020-05-23] MEDS: carvediloL 25 MG TABLET PO ×2 (09:12→20:59)
[2020-05-23] MEDS: APIXABAN 5 MG TABLET PO ×2 (09:12→20:59)
[2020-05-23] MEDS: DOCUSATE SODIUM 100 MG CAPSULE PO ×2 (09:14→21:00)
[2020-05-23] MEDS: INSULIN ASPART (*BKC) 100 UNITS/ML SUB-Q ×3 (09:15→17:31)
[2020-05-23 12:01] LABS: Glucose Point of Care 181 (65-105)
[2020-05-23] MEDS: CYCLOBENZAPRINE HCL 5 MG TABLET PO ×2 (12:15→17:30)
[2020-05-23 14:00] VITALS: BP 145/69; PULSE 74; RESP 18; TEMP 36.9; O2SAT 100
[2020-05-23 16:42] LABS: Glucose Point of Care 146 (65-105)
--- NOTE | 2020-05-23 18:19 | PC.NURSE ---
10am changed dressing to find no drainage, but area is now raised again and larger; measuring approximately 5cm diameter and .5cm height. Redness is less, but very firm. Redressed with coverlet and attempted to reach Dr. Canales. Dr. Canlaes called back and I gave him the update and he was concerned about bringing him to the hospital (did not want him going through ER) but did not know if could get him in on Sunday so he called Dr. Nelson. Dr. Canales later called back and said they would not be able to get him into the office until later in the week and that Dr. Nelson would prefer to direct admit him to [facility] with Dx to r/o post/op infection and the [facility] transfer center was on the line as well and would call me later with a room. Edgar and his were informed of the plan. [facility] transfer center called back around 12:45 with Room [id number] Bed 1 and number to call report. I let [facility] know and his of the room number. Report called to nurse [facility] at 1305 and [facility] called at 1310 and stated it would be next available in about an hour. At 1530 [facility] had not showed up and I called them and they stated it would be closer to 1730/1800. Patient informed. At 1835 I [facility] called again and it is noew going to be around 10pm. I called [facility] to let them know.
[2020-05-23 20:00] VITALS: PULSE 77; RESP 18; O2SAT 99
[2020-05-23 20:59] VITALS: PULSE 82
[2020-05-23] MEDS: MELATONIN 3 MG TABLET PO (21:06)
[2020-05-23] MEDS: INSULIN GLARGINE (*BKC) 100 UNITS/ML 15 UNITS SUB-Q (21:08)
[2020-05-23 21:09] LABS: Glucose Point of Care 186 (65-105)
[2020-05-23 22:00] VITALS: BP 142/77; PULSE 77; RESP 18; TEMP 36.6; O2SAT 99
--- NOTE | 2020-05-23 22:46 | PC.NURSE ---
Called [facility] ambulance 2200 to confirm transport of patient. [facility] stated due to emergency calls patients transport will be postponed till 0100 05/24/20. They would call if transport could be arranged sooner. [facility] called [phone] and informed transfer would be postponed till approx 0100 05/24/20. Transport stated surgeon would be notified. Called Dr Gomez and informed of delay.
--- NOTE | 2020-05-23 23:14 | PC.NURSE ---
[facility] ambulance called and pushed back pickup for patient maybe 0230 05/24/20. [facility] called and informed of delay.
[2020-05-24] MEDS: ACETAMINOPHEN 500 MG TABLET 1000 MG PO (00:18)
[2020-05-24] MEDS: oxyCODONE HCL (*CRX) 5 MG TAB IR 10 MG PO (02:25)
[2020-05-24] MEDS: CYCLOBENZAPRINE HCL 5 MG TABLET PO (02:25)
[2020-05-24 02:38] VITALS: BP 147/74; PULSE 74; RESP 16; TEMP 36.9; O2SAT 99
--- NOTE | 2020-05-24 02:45 | PC.NURSE ---
Discharged per [facility]. Updated report called to Navneet LOPEZ at [facility]. Transport department notified patient in route. called of ambulance here for transport.
--- NOTE | 2020-05-27 11:50 | PM.TDS ---
Transfer Discharge Sum: Prov Provider Date of admission: 05/13/20 15:58 Primary care physician: Ho Mosher MD Admitting clinician: Kamron Gomez MD Consults: 05/18/20 Consult to Home Health Routine Reason for Consult:: Occupational Therapy Physicial Therary RN/[facility] DS: Admitting Diagnosis Admitting Diagnosis Admitting Diagnosis: Cervical surgeryADMISSION FUNCTION:69 years old admitted to the rehab floor of [facility] with the diagnosis of cervical spine Monae stasis and is stenosis in addition to the comorbid conditions of 1. Diabetes mellitus 2. Hypertension 3. Lumbar stenosis patient was initially admitted to [facility] on April 28, 2020 for left upper extremity weakness increasing confusion initial evaluation documented C7 pathological burst fracture with tumor extending into posterior elements and extra osseous paravertebral soft tissue as well at the level of C6-T1 and T2 further evaluation documented the cystic solid mass, left kidney mass and post obstructive lactase is and pneumonia he underwent posterior cervical approach for debulking and the postoperative course was somewhat complicated by electrolyte imbalance once condition was somewhat stable he was transferred to rehab for further physical therapy and occupational therapy. During the rehab he remained stable and had no specific problem. Routine lab generally remained stable with elevation of the blood sugar but his condition definitely improved. At the time of admission his evaluation revealed Oral Care set up only Toileting Hygiene partial assistance Shower/Bathing partial assistance Upper Body Dressing substantial or maximal assistance Lower Body Dressing partial assistance Donning/[place] Footwear partial assistance Rolling Left and Right supervision Sit to Lying supervision Lying to Sitting partial assistance Sit to Stand partial assistance Bed to Chair Transfers partial assistance Toilet Transfers partial assistance Car Transfers partial curatorial assistant Walking 10' partial curatorial assistant Walking 50' with Two Turns unable Curb or Step dependent 4 Steps unable 12 Steps unable Picking Up Object partial assistance [Wheelchair Mobility 50'] independent [Wheelchair Mobility 150'] independent GOALS: Eating [INDEPENDENT] Oral Care [INDEPENDENT] Toileting Hygiene [INDEPENDENT] Shower/Bathing setup or clean up Upper Body Dressing partial curatorial assistant Lower Body Dressing setup or clean up Donning/[place] Footwear set up or clean up Rolling Left and Right [INDEPENDENT] Sit to Lying [INDEPENDENT] Lying to Sitting [INDEPENDENT] Sit to Stand [INDEPENDENT] Bed to Chair Transfers [INDEPENDENT] Toilet Transfers [INDEPENDENT] Car Transfers [INDEPENDENT] Walking 10' [INDEPENDENT] Walking 50' with Two Turns [INDEPENDENT] Walking 150' [INDEPENDENT] Curb or Step supervision 4 Steps supervising 12 Steps supervision Picking Up Object [INDEPENDENT] [Wheelchair Mobility 50'] [INDEPENDENT] [Wheelchair Mobility 150'] [INDEPENDENT] DISCHARGE PERFORMANCE: ] The patient had [no falls] he was noted to have a problem of his surgical incision for that reason he was transferred before his rehab was completed but his condition was definitely improving he had no falls or injuries during the hospitalization and discharge diagnosis remained same Transfer Discharge Sum: Med Medications Active and Home Medications: Home Medications acetaminophen 500 mg PO Q6H #50 cap 05/22/20 [Rx] apixaban [Eliquis] 5 mg PO Q12HR #60 tablet 05/22/20 [Rx] carvedilol [Coreg] 25 mg PO BID #60 tablet 05/22/20 [Rx] cyclobenzaprine 5 mg PO TID PRN #50 tablet 05/22/20 [Rx] docusate sodium 100 mg PO Q12HR #60 cap 05/22/20 [Rx] escitalopram oxalate [Lexapro] 10 mg PO DAILY #30 tablet 05/22/20 [Rx] insulin aspart U-100 [Novolog U-100 Insulin aspart] 2 - 5 units SUBCUT ACINSULIN #450 units 05/22/20 [Rx] insulin aspa
== END 2020-05-24 02:43 | disposition short-term general hospital (02) | DRG 949 ==
PROVIDERS: Admitting Provider Psychiatry & Neurology Neurology; PCP Family Medicine; Visit Provider Psychiatry & Neurology Neurology
DX: Z48.3 Aftercare following surgery for neoplasm (principal); C79.51 Secondary malignant neoplasm of bone; G81.94 Hemiplegia, unspecified affecting left nondominant side; M84.48XA Pathological fracture, other site, initial encounter for fracture; G93.40 Encephalopathy, unspecified; N17.9 Acute kidney failure, unspecified; E87.1 Hypo-osmolality and hyponatremia; G62.81 Critical illness polyneuropathy; T81.89XA Other complications of procedures, not elsewhere classified, initial encounter; C80.1 Malignant (primary) neoplasm, unspecified; M54.12 Radiculopathy, cervical region; M48.061 Spinal stenosis, lumbar region without neurogenic claudication; D64.9 Anemia, unspecified; E87.5 Hyperkalemia; E11.22 Type 2 diabetes mellitus with diabetic chronic kidney disease; E78.5 Hyperlipidemia, unspecified; E88.81 Metabolic syndrome and other insulin resistance; E83.52 Hypercalcemia; I48.91 Unspecified atrial fibrillation; I12.9 Hypertensive chronic kidney disease with stage 1 through stage 4 chronic kidney disease, or unspecified chronic kidney disease; J98.09 Other diseases of bronchus, not elsewhere classified; N28.89 Other specified disorders of kidney and ureter; N18.30 Chronic kidney disease, stage 3 unspecified; R53.83 Other fatigue; W19.XXXA Unspecified fall, initial encounter; Z79.4 Long term (current) use of insulin; Z98.890 Other specified postprocedural states; Z85.828 Personal history of other malignant neoplasm of skin; Z87.891 Personal history of nicotine dependence
CPT/HCPCS: 36415; 72050; 80048; 85025; 97110; 97116; 97161; 97165; 97530; 97535; A9270; J1650; J1815